=== PATIENT | female | born 1965 | race Caucasian/White ===

== ENCOUNTER 2017-05-18 21:21 | Emergency (ER) | payer MEDICAID, SELFPAY ==
[2017-05-18 21:22] VITALS: BP 164/98; PULSE 97; RESP 22; TEMP 36.6; O2SAT 98; BMI 31.5
[2017-05-18 21:25] VITALS: BP 164/98; PULSE 95; RESP 16; O2SAT 97
[2017-05-18] MEDS: LORazepam 2 MG/ML Syringe 1 MG IV (21:34)
--- NOTE | 2017-05-18 21:34 | EKG12_ITS ---
Test Reason : REPEAT Blood Pressure : / mmHG Vent. Rate : 071 BPM Atrial Rate : 071 BPM P-R Int : 132 ms QRS Dur : 090 ms QT Int : 448 ms P-R-T Axes : 060 044 125 degrees QTc Int : 486 ms Normal sinus rhythm T wave abnormality, consider anterolateral ischemia Prolonged QT Abnormal ECG Confirmed by AXEL HILL, SHAHID ([id number]), editor managing director DOUGLAS BAKER ([id number]) on 05/23/2017 4:11:36 PM Referred By: BETSY Confirmed By:SHAHID REYNA MD
--- NOTE | 2017-05-18 21:34 | CT_ITS ---
STUDY: CT BRAIN WITHOUT CONTRAST REASON FOR EXAM: Female, 52 years old. HX OF CVA, LEFT LEG TREMORS TONIGHT ,ELEVATED BP HX:MS,RA,HTN,ASTHMA,CVA WITH RESIDUAL LT SIDED DEFICITS RADIATION DOSAGE (If Supplied By Facility): CTDIvol = ( 44.99 ) mGy, DLP = ( 745.49 ) mGycm TECHNIQUE: Transaxial CT imaging of the brain was performed without administration of intravenous contrast material. Individualized dose optimization techniques were used for this CT. COMPARISON: None. FINDINGS: Normal soft tissue structures. Normal calvarium. Old right COPER HAND infarct. Normal size ventricles and extra-axial spaces for the patient's age. Normal white matter tracts of the cerebral hemispheres. Normal basal ganglia and thalami. Normal brainstem. Normal cerebellum. There is no intracranial hemorrhage. There are no findings of an acute ischemic infarction. Normal visualized paranasal sinuses. CT/Brain/Head without Contrast IMPRESSION: Old right COPER HAND infarct. Electronically Signed: Shakeel Salcido MD at 22:02 EST , Service support ,
[2017-05-18 21:36] LABS: Bedside Glucose 124 mg/dL (70-110)
--- NOTE | 2017-05-18 21:37 | ED.VISSUMM ---
- ER Visit Summary Date of Service: 05/18/17 Chief Complaint: Left lower extremity tremor History of Present Illness: The patient is a 52 F prior history of CVA with left upper extremity and lower extremity paralysis. Patient states that around 7:00 tonight she started having tremor of her left lower extremity. Is been continuous since that time. She is one other time in the summer and was treated at [facility]. They told her that it was anxiety according to her. She denies any headache. Denies any history of seizure disorder. Physical Examination: Well-appearing middle-age female. Vital signs are stable afebrile. Pulse ox 90% on room air no signs of hypoxia. H EENT exam pupils round reactive light. Extra motions are intact. No facial droop. Normal speech. Neck nontender. Lungs clear to auscultation bilaterally. Heart regular rate and rhythm no murmur. Abdomen soft nontender. Extremities both the right upper right lower extremity she is moving normally. With normal shaker repairer strength and dorsi and plantar flexion. Normal motor strength and sensation. She has paralysis of the left arm and leg. Clinically she has a unifocal seizure her left leg currently occurring. She has a normal DP pulse. Neurologically she is awake and alert. She is moving both right upper right lower extremity. She has paralysis of the left upper and lower extremity. She is having acute unifocal seizure of the left leg. She is answering questions and acting appropriately. 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 No bleed no acute abnormality. CBC shows a white count of 12. H&H 14 and 43. BMP normal. Creatinine 1.1. Troponin normal. EKG initial EKG patient was actively having in her focal seizure her leg and had a lot of artifact on it. Repeat EKG showed a sinus rhythm with inverted T waves in the 3 through V5. The most recent old EKG was 20 years ago and the patient was 32. She is having no cardiac symptoms. And has not been having any chest pain. Emergency Department Course and Treatment: Patient will be worked up including a CT. She will be given 1 mg of Ativan IV to try to stop the seizure activity of her left leg. Treatment Plan: Patient is unifocal seizure completely resolved after the 1 mg of IV Ativan. She wants to be discharged to home and worked up as an outpatient. I spoke to the on-call neurologist and he will see her in follow-up. She will be started on Keppra 500 twice daily. And will need outpatient MRI and EEG according to the neurologist. Patient does not drive. And on repeat exam her left foot has a strong DP pulse. Calf is nonswollen. Anesthesia is resolved. Disposition: Discharge Impression: Acute left lower extremity unifocal seizure Status post stroke with left-sided paralysis from 2014 This note was generated with [employer] dictation software. It may contain incorrect words, spelling, and punctuation that were not noted in review of the chart prior to signing ED Disposition - Plan for ED Patient: Chief Complaint: Neuro S/Sx Referrals: [facility] Doctor,Out of [NON-STAFF] -
--- NOTE | 2017-05-18 21:41 | ED.DCSUM_ITS ---
- ER Visit Summary Date of Service: 05/18/17 Chief Complaint: Left lower extremity tremor History of Present Illness: The patient is a 52 F prior history of CVA with left upper extremity and lower extremity paralysis. Patient states that around 7:00 tonight she started having tremor of her left lower extremity. Is been continuous since that time. She is one other time in the summer and was treated at [facility]. They told her that it was anxiety according to her. She denies any headache. Denies any history of seizure disorder. Physical Examination: Well-appearing middle-age female. Vital signs are stable afebrile. Pulse ox 90% on room air no signs of hypoxia. H EENT exam pupils round reactive light. Extra motions are intact. No facial droop. Normal speech. Neck nontender. Lungs clear to auscultation bilaterally. Heart regular rate and rhythm no murmur. Abdomen soft nontender. Extremities both the right upper right lower extremity she is moving normally. With normal manager engagement strength and dorsi and plantar flexion. Normal motor strength and sensation. She has paralysis of the left arm and leg. Clinically she has a unifocal seizure her left leg currently occurring. She has a normal DP pulse. Neurologically she is awake and alert. She is moving both right upper right lower extremity. She has paralysis of the left upper and lower extremity. She is having acute unifocal seizure of the left leg. She is answering questions and acting appropriately. 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 No bleed no acute abnormality. CBC shows a white count of 12. H&H 14 and 43. BMP normal. Creatinine 1.1. Troponin normal. EKG initial EKG patient was actively having in her focal seizure her leg and had a lot of artifact on it. Repeat EKG showed a sinus rhythm with inverted T waves in the 3 through V5. The most recent old EKG was 20 years ago and the patient was 32. She is having no cardiac symptoms. And has not been having any chest pain. Emergency Department Course and Treatment: Patient will be worked up including a CT. She will be given 1 mg of Ativan IV to try to stop the seizure activity of her left leg. Treatment Plan: Patient is unifocal seizure completely resolved after the 1 mg of IV Ativan. She wants to be discharged to home and worked up as an outpatient. I spoke to the on-call neurologist and he will see her in follow- up. She will be started on Keppra 500 twice daily. And will need outpatient MRI and EEG according to the neurologist. Patient does not drive. And on repeat exam her left foot has a strong DP pulse. Calf is nonswollen. Anesthesia is resolved. Disposition: Discharge Impression: Acute left lower extremity unifocal seizure Status post stroke with left-sided paralysis from 2014 This note was generated with [employer] dictation software. It may contain incorrect words, spelling, and punctuation that were not noted in review of the chart prior to signing ED Disposition - Plan for ED Patient: Chief Complaint: Neuro S/Sx Referrals: [facility] Doctor,Out of [NON-STAFF] -
[2017-05-18 21:50] LABS: Absolute Lymphocyte Count 5.33 X10^3/ul (0.83-4.51); Absolute Neutrophil Count 5.5 X10^3/uL (2.0-7.7); Basophil# 0.03 X10^3/uL; Basophil% 0.2 % (0-1); Differential Indicated SCAN CRITERIA MET; Eosinophil# 0.31 X10^3/uL; Eosinophils% 2.5 % (0-5); Hematocrit 43.9 % (37-47); Hemoglobin 14.5 g/dl (12.0-15.0); Lymphocyte # 5.33 X10^3/ul (4.0); Lymphocyte % 42.9 % (19-41); Mean Corpuscular Hgb 30.1 pg (27.0-32.0); Mean Corpuscular Volume 91.1 fL (81-99); Monocyte% 9.7 % (0-10); Neutrophil # 5.52 X10^3/uL (2.7-7.7); Neutrophil % 44.5 % (47-70); POSITIVE COUNT NO; POSITIVE DIFFERENTIAL YES; POSITIVE MORPHOLOGY NO; Platelet Count 261 K/mm3 (150-450); RBC Distribution Width CV 12.8 % (11.6-14.6); RBC Distribution Width SD 42.2 fl (35.1-43.9); Red Blood Count 4.82 M/mm3 (4.2-5.4); White Blood Count 12.4 K/mm3 (4.4-11.0)
[2017-05-18 22:09] LABS: Anion Gap 11 (5-15); BUN 22 mg/dL (7-18); BUN/Creat Ratio 18.8 RATIO (10-20); Calcium,Total 9.2 mg/dL (8.5-10.1); Chloride 102 mmol/L (98-107); Creatinine, Serum 1.17 mg/dL (0.55-1.02); EST Glomerular Filtration Rate 52 mL/min (>60); Est Glom Filt Rate - Afr Amer 63 mL/min (>60); Estimated Creatinine Clearance 44.49 ml/min; Glucose 119 mg/dL (70-110); Sodium Level 138 mmol/L (136-145)
--- NOTE | 2017-05-18 22:11 | EKG12_ITS ---
Test Reason : CP Blood Pressure : / mmHG Vent. Rate : 096 BPM Atrial Rate : 096 BPM P-R Int : 136 ms QRS Dur : 082 ms QT Int : 372 ms P-R-T Axes : 069 055 171 degrees QTc Int : 469 ms Normal sinus rhythm ST & T wave abnormality, consider inferior ischemia ST & T wave abnormality, consider anterolateral ischemia Abnormal ECG Confirmed by AXEL HILL, SHAHID ([id number]), editor greeting card DOUGLAS BAKER ([id number]) on 05/23/2017 4:11:27 PM Referred By: CYRUS Confirmed By:SHAHID REYNA MD
[2017-05-18 22:20] LABS: Differential Comment SCANNED; Platelet Estimate ADEQUATE (ADEQ); Reactive Lymphocyte 1+
--- NOTE | 2017-05-18 23:05 | ED.DEP ---
ED Disposition - Plan for ED Patient: Disposition: Home or Assisted Living Chief Complaint: Neuro S/Sx Instructions: ED Seizure New Onset Unk Cause Prescriptions: Levetiracetam [Keppra] 500 mg PO BID #60 tab Referrals: Kiesha Slater MD [STAFF PHYSICIAN] - As soon as possible Additional Instructions: Start Keppra 1 pill twice a day to try to prevent the seizures. You have new onset seizure of your left leg because most likely by her prior stroke. You need outpatient follow-up with the neurologist for an MRI, EEG study and further evaluation. Call their office for an appointment as soon as possible
[2017-05-18] MEDS: HYDROcodone Bitartrate/Apap 5/325 Tablet PO (23:09)
[2017-05-18 23:10] VITALS: BP 121/68; PULSE 71; RESP 16; O2SAT 95
[2017-05-18] MEDS: levETIRAcetam 500 MG Tablet PO (23:25)
== END 2017-05-18 23:36 | disposition home or self-care (01) ==
PROVIDERS: Emergency Provider Emergency Medicine; Family Provider Family Medicine; PCP Family Medicine
DX: R56.9 Unspecified convulsions (principal); I69.354 Hemiplegia and hemiparesis following cerebral infarction affecting left non-dominant side; I10 Essential (primary) hypertension; E78.00 Pure hypercholesterolemia, unspecified; G35 Multiple sclerosis; M06.9 Rheumatoid arthritis, unspecified; Z72.0 Tobacco use; Z79.51 Long term (current) use of inhaled steroids; Z79.82 Long term (current) use of aspirin; Z79.02 Long term (current) use of antithrombotics/antiplatelets; Z79.899 Other long term (current) drug therapy
CPT/HCPCS: 70450; 80048; 82962; 84484; 85025; 93005; 96374; 99285; A4216

== ENCOUNTER → 2017-06-06 17:45 | Outpatient (CLI) | payer MEDICAID, SELFPAY ==
[2017-06-06 19:13] LABS: Amphetamine Urine VISTA NEGATIVE (<1000 ng/mL); Barbiturate Urine VISTA NEGATIVE (< 200 ng/mL); Benzodiazepine Urine VISTA NEGATIVE (< 200 ng/mL); Cocaine Urine VISTA NEGATIVE (< 300 ng/mL); Ecstacy Urine VISTA NEGATIVE (< 500 ng/mL); Methadone Urine VISTA NEGATIVE (< 300 ng/mL); PCP Urine VISTA NEGATIVE (< 25 ng/mL); THC Urine VISTA NEGATIVE (< 50 ng/mL); Vista UDS pH Range 5
== END ==
LOC: RAD 17:45 → LAB 17:50
PROVIDERS: Family Provider Family Medicine; PCP Family Medicine; Visit Provider Anesthesiology Pain Medicine
DX: F11.20 Opioid dependence, uncomplicated (principal)
CPT/HCPCS: 80307

== ENCOUNTER → 2017-06-07 10:04 | Outpatient (CLI) | payer MEDICAID, SELFPAY | PROVIDERS: Family Provider Family Medicine; PCP Family Medicine; Visit Provider Anesthesiology Pain Medicine | DX: M54.2 Cervicalgia (principal); M53.3 Sacrococcygeal disorders, not elsewhere classified ==

== ENCOUNTER → 2017-07-04 17:48 | Outpatient (CLI) | payer MEDICAID, SELFPAY ==
[2017-07-04 19:16] LABS: Amphetamine Urine VISTA NEGATIVE (<1000 ng/mL); Barbiturate Urine VISTA NEGATIVE (< 200 ng/mL); Benzodiazepine Urine VISTA NEGATIVE (< 200 ng/mL); Cocaine Urine VISTA NEGATIVE (< 300 ng/mL); Ecstacy Urine VISTA NEGATIVE (< 500 ng/mL); Methadone Urine VISTA NEGATIVE (< 300 ng/mL); PCP Urine VISTA NEGATIVE (< 25 ng/mL); THC Urine VISTA NEGATIVE (< 50 ng/mL); Vista UDS pH Range 5
== END ==
PROVIDERS: Family Provider Family Medicine; PCP Family Medicine; Visit Provider Anesthesiology Pain Medicine
DX: F11.20 Opioid dependence, uncomplicated (principal)
CPT/HCPCS: 80307

== ENCOUNTER → 2017-08-29 12:15 | Outpatient (CLI) | payer MEDICAID, SELFPAY ==
[2017-08-29 13:09] LABS: Amphetamine Urine VISTA NEGATIVE (<1000 ng/mL); Barbiturate Urine VISTA NEGATIVE (< 200 ng/mL); Benzodiazepine Urine VISTA NEGATIVE (< 200 ng/mL); Cocaine Urine VISTA NEGATIVE (< 300 ng/mL); Ecstacy Urine VISTA NEGATIVE (< 500 ng/mL); Methadone Urine VISTA NEGATIVE (< 300 ng/mL); PCP Urine VISTA NEGATIVE (< 25 ng/mL); THC Urine VISTA NEGATIVE (< 50 ng/mL); Vista UDS pH Range 5
== END ==
PROVIDERS: Family Provider Family Medicine; PCP Family Medicine; Visit Provider Anesthesiology Pain Medicine
DX: F11.20 Opioid dependence, uncomplicated (principal)
CPT/HCPCS: 80307

== ENCOUNTER → 2018-02-13 10:17 | Outpatient (CLI) | payer MEDICAID, SELFPAY ==
[2018-02-13 11:28] LABS: Amphetamine Urine VISTA NEGATIVE (<1000 ng/mL); Barbiturate Urine VISTA NEGATIVE (< 200 ng/mL); Benzodiazepine Urine VISTA NEGATIVE (< 200 ng/mL); Cocaine Urine VISTA NEGATIVE (< 300 ng/mL); Ecstacy Urine VISTA NEGATIVE (< 500 ng/mL); Methadone Urine VISTA NEGATIVE (< 300 ng/mL); PCP Urine VISTA NEGATIVE (< 25 ng/mL); THC Urine VISTA NEGATIVE (< 50 ng/mL); Vista UDS pH Range 5
== END ==
PROVIDERS: Referring Provider Anesthesiology Pain Medicine; Visit Provider Anesthesiology Pain Medicine
DX: F11.20 Opioid dependence, uncomplicated (principal)
CPT/HCPCS: 80307

== ENCOUNTER 2018-06-03 19:34 | Emergency (ER) | payer MEDICAID, SELFPAY ==
[2018-06-03 19:36] VITALS: BP 165/107; PULSE 94; RESP 18; TEMP 36.8; O2SAT 99; BMI 32.1
--- NOTE | 2018-06-03 20:23 | ED.VISSUMM ---
- ER Visit Summary Date of Service: 06/03/18 Chief Complaint: Back pain History of Present Illness: The patient is a 53 F with a history of chronic back pain and follows with Dr. Larsen. Patient reports increasing low back pain that wraps to both hips and down her legs for the past 3 days. She denies any new fall or injury. She called Dr. Larsen tonight was advised to come into the ER. She has not had fever or chills. She complains of some mild URI symptoms with left ear pain and sinus pressure. Physical Examination: Vital signs significant for blood pressure 165/107, otherwise unremarkable. Patient sitting in a bedside chair no acute distress. Head neck examination reveals TMs to be clear bilaterally. Heart is regular rate and rhythm. Lungs sounds are clear. Abdomen is soft and nontender. Back examination reveals reproducible tenderness in the bilateral lower lumbar paraspinals. Lower extremity examination reveals good strength in the lower extremities. She has a pinprick sensation to light touch on the right leg above the knee and to the left leg above the ankle. She states this is the same distribution that her pain radiates to. Test Results: [] Emergency Department Course and Treatment: Patient will be given IM morphine and p.o. prednisone. On repeat evaluation she is improved. She is up walking in the hallways. She will be given 4 additional days of prednisone at home. She will continue her hydrocodone as prescribed by her pain management doctor. Treatment Plan: [] Disposition: Discharge Impression: Acute on chronic back pain This note was generated with [employer] dictation software. It may contain incorrect words, spelling, and punctuation that were not noted in review of the chart prior to signing ED Disposition - Plan for ED Patient: Referrals: Care Physician,No Primary [Primary Care Provider] -
[2018-06-03] MEDS: predniSONE 20 MG Tablet 40 MG PO (20:46)
[2018-06-03] MEDS: morphine 8 MG/ML Syringe 6 MG IM (20:46)
--- NOTE | 2018-06-03 21:46 | ED.DEP ---
ED Disposition - Plan for ED Patient: Disposition: Home or Assisted Living Instructions: ED Neck Back Pain General Prescriptions: Prednisone [Deltasone] 40 mg PO DAILY #8 tablet Referrals: Flores Larsen MD [STAFF PHYSICIAN] - 1 Week if not improving
[2018-06-03 21:58] VITALS: PULSE 113; RESP 18; O2SAT 94
== END 2018-06-03 21:59 | disposition home or self-care (01) ==
PROVIDERS: Emergency Provider Emergency Medicine
DX: M54.5 Low back pain (principal); G89.29 Other chronic pain; J45.909 Unspecified asthma, uncomplicated; E78.00 Pure hypercholesterolemia, unspecified; I10 Essential (primary) hypertension; M79.7 Fibromyalgia; M06.9 Rheumatoid arthritis, unspecified; G35 Multiple sclerosis; F41.9 Anxiety disorder, unspecified; F32.9 Major depressive disorder, single episode, unspecified; Z72.0 Tobacco use; Z79.51 Long term (current) use of inhaled steroids; Z79.82 Long term (current) use of aspirin; Z79.02 Long term (current) use of antithrombotics/antiplatelets; Z79.891 Long term (current) use of opiate analgesic; Z79.899 Other long term (current) drug therapy
CPT/HCPCS: 96372; 99283

== ENCOUNTER → 2018-07-31 | Outpatient (CLI) | payer MEDICAID, SELFPAY ==
[2018-07-31 10:43] LABS: Amphetamine Urine VISTA NEGATIVE (<1000 ng/mL); Barbiturate Urine VISTA NEGATIVE (< 200 ng/mL); Benzodiazepine Urine VISTA NEGATIVE (< 200 ng/mL); Cocaine Urine VISTA NEGATIVE (< 300 ng/mL); Ecstacy Urine VISTA NEGATIVE (< 500 ng/mL); Methadone Urine VISTA NEGATIVE (< 300 ng/mL); PCP Urine VISTA NEGATIVE (< 25 ng/mL); THC Urine VISTA NEGATIVE (< 50 ng/mL); Vista UDS pH Range 5
== END | disposition home or self-care (01) ==
LOC: LAB 09:25
PROVIDERS: Family Provider Nurse Practitioner Family; PCP Nurse Practitioner Family; Referring Provider Anesthesiology Pain Medicine; Visit Provider Anesthesiology Pain Medicine
DX: F11.20 Opioid dependence, uncomplicated (principal)
CPT/HCPCS: 80307

== ENCOUNTER 2018-09-03 19:52 | Emergency (ER) | payer MEDICAID, SELFPAY ==
[2018-09-03 19:52] VITALS: BP 153/81; PULSE 69; RESP 16; TEMP 37; O2SAT 98; BMI 30.9
--- NOTE | 2018-09-03 20:55 | ED.VIS.GEN ---
History of Present Illness Chief Complaint: Back Informant: Patient Onset: Days - 2 Context: Gradual Onset Timing: Continuous Quality: ache, grabbing Location: across low back Current Severity: Severe Maximum Severity: Severe Worsened by: walking, moving Relieved by: remaining still Associated Symptoms: chronic tingling in toes bilat from neuropathy. Narrative: Patient has chronic back pain, she has had MRI showing deterioration of her lower spine. She states this is her chronic pain, just worse. Pain radiates into her thighs bilaterally, that is not new. She denies any bowel or bladder dysfunction or saddle anesthesia. She has been able to walk. She denies any injury or obvious reason for exacerbation of her pain. She is in pain management and takes long-acting narcotics, she has been taking that pain as scheduled and they have not helped today and she is in a lot of pain and asking for something. She denies any abdominal pain or loss of consciousness. - Past Medical History (1) Degenerative disc disease, lumbar Status: Chronic (2) Multiple sclerosis Status: Chronic (3) Rheumatoid arthritis Status: Chronic Past Medical History - Allergies and Home Meds Allergies/Adverse Reactions: Allergies Sulfa (Sulfonamide Antibiotics) Allergy (Verified 09/03/18 19:53) Guera Primary Care Physician: Jing Reid NP-C [Primary Care Provider] - Lives: Spouse/ Significant Other Smoking Status: Current every day smoker Review of Systems General: Denies: Chills, Fever Gastrointestinal: Denies: Abdominal pain, Nausea, Vomiting Musculoskeletal: Reports: Arthralgias, Back pain, Extremity Pain Skin: Denies: Rash, Abscess, Wounds Neurological: Reports: Numbness. Denies: Headache, Weakness Physical Exam Vital Signs/Narrative: Vital Signs Temp Pulse Resp BP Pulse Ox 09/03/18 19:52 98.6 F 69 16 153/81 H 98 Inital Vital Signs reviewed: Yes General: Well nourished, Well developed, No Acute Distress Head: Normocephalic, Atraumatic Eyes: Perrl, EOMI Neck: Supple, Nontender Abdomen: Soft, Nontender, Nondistended, Normal bowel sounds. Negative for: Pulsatile mass Back: Normal Inspection, - - bilat distal lumbosacral, in SI joint areas. nontender at sciatic notches. negative bilat straight leg raises.. Negative for: CVA tenderness, Spinal tenderness Extremities: Nontender, No edema Skin: Normal color, No rash, No Trauma Neurological: Alert, Oriented x3, Cranial nerves II-XII grossly intact, Normal Strength, Normal Sensation, Normal Gait - with her cane and her Psychological: Normal affect, Normal Mood Diagnostic/Tx/Re-eval - Medical Decision Making Patient has no focal acute neurologic symptoms, and I have no concern for cauda equina syndrome. I do not think she needs any imaging tonight. She is walking well and does not appear to be in significant pain prior to giving her any medications. She is given an injection of morphine and she understands that she cannot get a prescription since she is in pain management, advised to follow-up after the weekend. ED Disposition - Plan for ED Patient: Disposition: Home or Assisted Living Diagnosis: Acute exacerbation of chronic low back pain Instructions: ED Low Back Pain Injury Referrals: Jing Reid, NICOLA-C [Primary Care Provider] - Flores Larsen MD [STAFF PHYSICIAN] - 1-2 Days if not improving
[2018-09-03] MEDS: morphine 8 MG/ML Syringe IM (21:29)
[2018-09-03 21:55] VITALS: BP 147/64; PULSE 82; RESP 18; O2SAT 94
== END 2018-09-03 21:57 | disposition home or self-care (01) ==
PROVIDERS: Emergency Provider Emergency Medicine; Family Provider Nurse Practitioner Family; PCP Nurse Practitioner Family
DX: G89.29 Other chronic pain (principal); M54.5 Low back pain; M06.9 Rheumatoid arthritis, unspecified; G35 Multiple sclerosis; F17.200 Nicotine dependence, unspecified, uncomplicated
CPT/HCPCS: 96372; 99282

== ENCOUNTER 2018-09-17 16:04 | Emergency (ER) | payer MEDICAID, SELFPAY ==
[2018-09-17 16:05] VITALS: BP 163/72; PULSE 66; RESP 18; TEMP 36.4; O2SAT 100; BMI 31.7
[2018-09-17 16:21] LABS: Bedside Glucose 105 mg/dL (70-110)
--- NOTE | 2018-09-17 16:42 | EKG12_ITS ---
Test Reason : NEURO S/SX Blood Pressure : / mmHG Vent. Rate : 064 BPM Atrial Rate : 064 BPM P-R Int : 128 ms QRS Dur : 078 ms QT Int : 406 ms P-R-T Axes : 051 024 068 degrees QTc Int : 418 ms Normal sinus rhythm Normal ECG Confirmed by AXEL HILL, SHAHID ([id number]), development editor DOUGLAS BAKER ([id number]) on 09/18/2018 11:54:03 AM Referred By: ZAKIYA/THEE Confirmed By:SHAHID REYNA MD
--- NOTE | 2018-09-17 16:42 | CT_ITS ---
STUDY: CT BRAIN WITHOUT CONTRAST REASON FOR EXAM: Female, 53 years old. Difficulty walking, history of MS RADIATION DOSAGE (If Supplied By Facility): CTDIvol = ( 44.99 ) mGy, DLP = ( 711.75 ) mGycm TECHNIQUE: Transaxial CT imaging of the brain was performed without administration of intravenous contrast material. Individualized dose optimization techniques were used for this CT. COMPARISON: 05/18/2017 FINDINGS: Normal soft tissue structures. Normal calvarium. Large encephalomalacia and gliosis of the right parietal occipital lobe with ex vacuo dilation of the right lateral ventricle stable since the prior study. Ventricular system is otherwise normal. Normal basal ganglia and thalami. Normal brainstem. Normal cerebellum. There is no intracranial hemorrhage. There are no findings of an acute ischemic infarction. Normal visualized paranasal sinuses. CT/Brain/Head without Contrast IMPRESSION: 1. No acute intracranial hemorrhage. Table exam. 2. Old right parieto-occipital infarction. Electronically Signed: Froy Lombardi MD at 17:54 EDT , Service support ,
[2018-09-17 16:55] LABS: Absolute Lymphocyte Count 2.66 X10^3/ul (0.83-4.51); Basophil# 0.04 X10^3/uL; Basophil% 0.3 % (0-1); Eosinophil# 0.23 X10^3/uL; Hematocrit 42.9 % (37-47); Hemoglobin 14.8 g/dl (12.0-15.0); Lymphocyte # 2.66 X10^3/ul (4.0); Lymphocyte % 22.7 % (19-41); Mean Corp Hgb Conc 34.5 g/gl (32-36); Mean Corpuscular Hgb 31.4 pg (27.0-32.0); Mean Corpuscular Volume 90.9 fL (81-99); Mean Platelet Vol. 10.1 fl (6.2-12.0); Monocyte# 0.76 X10^3/uL; Monocyte% 6.5 % (0-10); Neutrophil % 68.2 % (47-70); Platelet Count 280 K/mm3 (150-450); RBC Distribution Width CV 13.2 % (11.6-14.6); RBC Distribution Width SD 43.6 fl (35.1-43.9); Red Blood Count 4.72 M/mm3 (4.2-5.4); White Blood Count 11.7 K/mm3 (4.4-11.0)
[2018-09-17 17:00] LABS: POSITIVE COUNT NO; POSITIVE DIFFERENTIAL NO; POSITIVE MORPHOLOGY NO
[2018-09-17 17:03] LABS: Anion Gap 9 (5-15); BUN 36 mg/dL (7-18); BUN/Creat Ratio 27.3 RATIO (10-20); Calcium,Total 8.6 mg/dL (8.5-10.1); Chloride 107 mmol/L (98-107); Creatinine, Serum 1.32 mg/dL (0.55-1.02); EST Glomerular Filtration Rate 45 mL/min (>60); Est Glom Filt Rate - Afr Amer 54 mL/min (>60); Estimated Creatinine Clearance 38.98 ml/min; Glucose 97 mg/dL (74-106); Potassium 4.4 mmol/L (3.5-5.1); Sodium Level 138 mmol/L (136-145)
[2018-09-17] MEDS: 0.9% Normal Saline 1,000 ML 999 ML IV (17:08)
[2018-09-17] MEDS: DiphenhydrAMINE 50 MG/ML Syringe 25 MG IV (17:08)
[2018-09-17] MEDS: proCHLORPERazine 10 MG/2 ML Vial IV (17:08)
--- NOTE | 2018-09-17 17:15 | ED.DCSUM_ITS ---
- ER Visit Summary Date of Service: 09/17/18 Chief Complaint: Left-sided weakness History of Present Illness: The patient is a 53 F who presents with increasing weakness of her left side that began yesterday. Patient states she developed a headache yesterday. Patient states her daughter noticed that she was dragging her left foot today. Patient has a history of a CVA with left-sided weakness. Patient states her headache is over the frontal and left side of her face. Patient describes pain as throbbing. Patient states her pain is worse with bright lights. Patient denies any nausea or vomiting. Patient denies any radiation of the pain. Patient denies any visual changes. Patient denies any chest pain or shortness of breath. Physical Examination: Vital signs are stable. Patient is afebrile. Patient is in no acute distress. Cranial nerves II through XII are intact. Strength is 5/5 in the right upper and lower extremities. Strength is 5/5 in the left lower extremity. Strength is 5/5 in the left bicep and tricep muscles. Patient has difficulty moving her fingers but is able to extend her thumb. Patient states these are all chronic from her previous stroke. There are no sensory deficits noted. Heart was regular rate and rhythm. Lungs are clear and equal bilaterally. Abdomen is soft and nontender. Test Results: CT scan of the brain was obtained. There is no acute intracranial abnormality. There is no change compared to previous CT scan. CBC showed a slight leukocytosis of 11.7. BUN was 36 and creatinine was 1.32. These are consistent with prior results. Emergency Department Course and Treatment: Patient felt better on reevaluation. Patient had no new focal neuro deficits. Patient left prior to discharge instructions. Disposition: Discharge home Impression: 1. Left-sided weakness 2. History of stroke This note was generated with [employer] dictation software. It may contain incorrect words, spelling, and punctuation that were not noted in review of the chart prior to signing ED Disposition - Plan for ED Patient: Disposition: Home or Assisted Living Diagnosis: Left-sided weakness Referrals: Jing Reid, FIELD MECHANIC-C [Primary Care Provider] - 3-5 Days
[2018-09-17 18:07] VITALS: PULSE 74; RESP 13; O2SAT 98
== END 2018-09-17 19:59 | disposition home or self-care (01) ==
PROVIDERS: Emergency Provider Emergency Medicine; Family Provider Nurse Practitioner Family; PCP Nurse Practitioner Family
DX: I69.354 Hemiplegia and hemiparesis following cerebral infarction affecting left non-dominant side (principal); I63.9 Cerebral infarction, unspecified; J45.909 Unspecified asthma, uncomplicated; I10 Essential (primary) hypertension; G35 Multiple sclerosis; M79.7 Fibromyalgia; M06.9 Rheumatoid arthritis, unspecified; Z72.0 Tobacco use; Z79.51 Long term (current) use of inhaled steroids; Z79.02 Long term (current) use of antithrombotics/antiplatelets; Z79.899 Other long term (current) drug therapy
CPT/HCPCS: 70450; 80048; 82962; 85025; 93005; 96361; 96374; 96375; 99285; J7030; A4216

== ENCOUNTER 2018-11-19 18:54 | Emergency (ER) | payer MEDICAID, SELFPAY ==
[2018-11-19 18:55] VITALS: BP 139/66; PULSE 66; RESP 18; TEMP 35.9; O2SAT 97; BMI 32.1
--- NOTE | 2018-11-19 19:25 | ED.DCSUM_ITS ---
History of Present Illness Chief Complaint: Fall Detail of Chief Complaint: Intractable back pain Informant: Patient Onset: Days Context: Gradual Onset Current Severity: Moderate Maximum Severity: Moderate Narrative: Patient is a history of chronic back pain. She had prior stroke and has continued left-sided weakness. 4 days ago she caught her left toe and fell land ing right on the right posterior buttock. She had pain to that area since that time but is now shooting down the right leg to her foot. She was seen at [facility] urgent care twice since the time of injury. She is currently on steroids. She is already on extended release oxycodone as well as gabapentin and muscle relaxer. Nursing staff received a phone call from Dr. Larsen's nurse stating the patient will be sent in for pain control. Patient is scheduled to see Dr. Larsen's partner the end of this week. Past Medical History - Allergies and Home Meds Allergies/Adverse Reactions: Allergies bee venom protein (honey bee) Allergy (Verified 11/19/18 18:55) Anaphylaxis Sulfa (Sulfonamide Antibiotics) Allergy (Verified 11/19/18 18:54) Hives Primary Care Physician: Jing Reid NP-C [Primary Care Provider] - Doctors: Dr. Larsen Prior records reviewed: Yes Past Medical History: - - Reviewed Surgical History: - - no prior back surgery Smoking Status: Current every day smoker Review of Systems General: Denies: Chills, Fever Eyes: Denies: Visual changes - bilaterally ENT: Denies: Bilateral ear pain Cardiovascular: Denies: Chest pain, Palpitations Respiratory: Denies: Dyspnea, Cough Genitourinary: Denies: Dysuria Musculoskeletal: Reports: Back pain Neurological: Reports: Weakness Endocrine: Denies: Polyuria, Polydipsia Hematologic: Denies: Easy bruising Allergy: Denies: Uticaria Physical Exam Vital Signs/Narrative: Vital Signs Temp Pulse Resp BP Pulse Ox 11/19/18 18:55 96.7 F L 66 18 139/66 H 97 Inital Vital Signs reviewed: Yes General: Well nourished, Well developed Eyes: Perrl, EOMI ENT: Moist mucous membranes Cardiovascular: Regular rate, Regular rhythm Respiratory: No distress, CTA bilaterally Abdomen: Soft, Nontender Back: - - Reproducible tenderness over the right sciatic notch. Extremities: - - Chronic left upper extremity contracture and chronic left-sided weakness secondary to stroke. Skin: Normal color Neurological: Alert, - - Good strength and sensation on the right. Chronic left-sided weakness noted. Psychological: Normal affect Diagnostic/Tx/Re-eval - Medical Decision Making Patient was given 8 mg of IM morphine along with a dose of p.o. prednisone. I did review clinisync and her two recent visits to the [facility] urgent care. They documented that they gave her prednisone but did not state how many milligrams. On repeat examination patient is resting comfortably and feels significantly improved. She states that her pain is not been controlled on the long acting oxycodone that she is currently on. She had done better in the past with either [place] or Percocet. She is already on gabapentin, steroids, and muscle relaxer. I spoke with oCng Diaz, nurse for Dr. Larsen. We will write the patient a short course of p.o. Percocet which we have instructed her to take in place of her long-acting oxycodone. She voices understanding and agreement. She is to follow-up next Tuesday as planned. ED Disposition - Plan for ED Patient: Disposition: Home or Assisted Living Diagnosis: Sciatica Instructions: BACK PAIN w/ SCIATICA Referrals: Marj Irvin MD [STAFF PHYSICIAN] - Keep Elsa appointment Additional Instructions: *Prescription for 15 tabs Percocet hand written and sent to hospital pharmacy.
[2018-11-19] MEDS: morphine 8 MG/ML Syringe IM (19:28)
[2018-11-19] MEDS: predniSONE 20 MG Tablet 40 MG PO (19:29)
[2018-11-19 21:17] VITALS: RESP 18
== END 2018-11-19 21:17 | disposition home or self-care (01) ==
PROVIDERS: Emergency Provider Emergency Medicine; Family Provider Nurse Practitioner Family; PCP Nurse Practitioner Family
DX: M54.31 Sciatica, right side (principal); I63.9 Cerebral infarction, unspecified; I69.344 Monoplegia of lower limb following cerebral infarction affecting left non-dominant side; I69.334 Monoplegia of upper limb following cerebral infarction affecting left non-dominant side; F17.200 Nicotine dependence, unspecified, uncomplicated; Z79.02 Long term (current) use of antithrombotics/antiplatelets
CPT/HCPCS: 96372; 99282

== ENCOUNTER 2018-12-20 12:46 | Emergency (ER) | payer MEDICAID, SELFPAY ==
[2018-12-20 12:47] VITALS: BP 106/63; PULSE 82; RESP 18; TEMP 36.6; O2SAT 98; BMI 34.7
--- NOTE | 2018-12-20 13:29 | RAD_ITS ---
STUDY: X-RAY - LUMBAR SPINE REASON FOR EXAM: Female, 53 years old. Back pain following a fall. Bruising. TECHNIQUE: 3 view(s) of the lumbar spine were obtained. COMPARISON: None FINDINGS: Normal lumbar lordosis. There is no substantial scoliosis. Grade 1 anterolisthesis of L4 on L5. Normal vertebral bodies and endplates. There is multi-level degenerative disc disease with multi-level disc space narrowing. There is atherosclerotic calcification of the abdominal aorta without a demonstrated aneurysm. RAD/Lumbar Spine 2 or 3 Views IMPRESSION: Degenerative changes of the spine, as detailed above. Regular anterior listhesis of L4 on L5. Electronically Signed: Abhay Mojica, at 15:10 EDT , Service support ,
--- NOTE | 2018-12-20 13:29 | CT_ITS ---
STUDY: CT BRAIN WITHOUT CONTRAST REASON FOR EXAM: Female, 53 years old. Head injury due to a fall. No loss of consciousness. Old cerebrovascular accident. RADIATION DOSAGE (If Supplied By Facility): CTDIvol = ( 44.99 ) mGy, DLP = ( 745.49 ) mGycm TECHNIQUE: Transaxial CT imaging of the brain was performed without administration of intravenous contrast material. Individualized dose optimization techniques were used for this CT. COMPARISON: Comparison is made with prior examination dated September 17, 2018. FINDINGS: Normal soft tissue structures. Normal calvarium. Once again, there is a large area of encephalomalacia involving the right parietal temporal occipital lobes in keeping with prior infarction of the right posterior cerebral artery territory. Normal basal ganglia and thalami. Normal brainstem. Normal cerebellum. There is no intracranial hemorrhage. There are no findings of an acute ischemic infarction. Normal visualized paranasal sinuses. CT/Brain/Head without Contrast IMPRESSION: Stable encephalomalacia in the right temporal parietal occipital lobes. Electronically Signed: Abhay Mojica, at 14:45 EDT , Service support ,
--- NOTE | 2018-12-20 13:29 | RAD_ITS ---
STUDY: X-RAY - LEFT HAND REASON FOR EXAM: Female, 53 years old. Pain following a fall. TECHNIQUE: 3 view(s) of the hand. COMPARISON: None. FINDINGS: There is joint space narrowing of the radiocarpal articulation consistent with degenerative arthrosis. Normal distal radioulnar joint. Normal visualized carpal bones. Normal carpal articulations Normal carpometacarpal articulation of the thumb. Normal second through fifth carpometacarpal joints. Normal metacarpi. Normal metacarpophalangeal joint of the thumb. Normal interphalangeal joint of the thumb. Normal proximal and distal phalanges of the thumb. Normal metacarpophalangeal joints of the second through fifth fingers. Normal proximal and distal interphalangeal joints of the second through fifth fingers. Comminuted fracture of the distal portion of the fifth metacarpal with dorsal angulation. Overlying soft tissue swelling. RAD/Hand Min 3 Views IMPRESSION: Comminuted nondisplaced fracture of the distal aspect of the fifth metacarpal with dorsal angulation and diffuse soft tissue swelling. Electronically Signed: Abhay Mojica, at 15:21 EDT , Service support ,
--- NOTE | 2018-12-20 13:29 | RAD_ITS ---
STUDY: X-RAY - PELVIS AND BILATERAL HIPS REASON FOR EXAM: Female, 53 years old. Pain following a fall. TECHNIQUE: AP view of the pelvis.? 2 views of the right hip, and 2 views of the left hip were obtained. COMPARISON: None. FINDINGS: Moderate amount of fecal material is seen in the right hemicolon. Bilateral calcified injection granulomas. Normal bilateral iliac wings, sacroiliac joints and visualized sacrum. Normal bilateral superior and inferior pubic rami. Normal pubic symphysis. Normal bilateral ischial tuberosities. Normal visualized right femoral head. Normal right acetabulum. Normal right hip joint. Normal visualized left femoral head. Normal left acetabulum. Normal left hip joint. RAD/Hips B/L min 2 views w/ Pelvis IMPRESSION: Normal x-ray examination of the pelvis and bilateral hips. Electronically Signed: Abhay Mojica, at 15:11 EDT , Service support ,
--- NOTE | 2018-12-20 13:29 | EKG12_ITS ---
Test Reason : FALL Blood Pressure : / mmHG Vent. Rate : 067 BPM Atrial Rate : 067 BPM P-R Int : 122 ms QRS Dur : 074 ms QT Int : 398 ms P-R-T Axes : 050 008 042 degrees QTc Int : 420 ms Normal sinus rhythm Normal ECG Confirmed by DESIREE CHARLES ([id number]), book editor SYLVIA KHAN ([id number]) on 12/25/2018 2:44:11 PM Referred By: JORDYN Confirmed By:DESIREE CHARLES
--- NOTE | 2018-12-20 13:29 | RAD_ITS ---
STUDY: X-RAY - LEFT SHOULDER REASON FOR EXAM: Female, 53 years old. Pain following a fall. TECHNIQUE: 2 view(s) of the shoulder. COMPARISON: None. FINDINGS: Normal glenohumeral articulation. Normal acromioclavicular joint. Normal acromion. Normal humeral head and visualized proximal humerus. The soft tissue structures are unremarkable. Normal visualized pulmonary apex. RAD/Shoulder min 2 Views IMPRESSION: Normal x-ray examination of the shoulder. Electronically Signed: Abhay Mojica, at 15:21 EDT , Service support ,
--- NOTE | 2018-12-20 13:29 | RAD_ITS ---
STUDY: X-RAY CHEST REASON FOR EXAM: Female, 53 years old. Pain and bruising following a fall. TECHNIQUE: Single AP portable view of the chest. COMPARISON: None. FINDINGS: The lungs are clear and expanded. Scattered calcified granulomas. There is no demonstrated pleural abnormality. Normal size heart. Normal mediastinum and helen. Normal visualized pulmonary arteries. Normal visualized aortic arch and descending thoracic aorta. Normal visualized thoracic spine. Normal visualized ribs, clavicles, and shoulders. There is no demonstrated abnormality of the visualized soft tissue structures of the upper abdomen. RAD/Chest 1 View (Portable) IMPRESSION: Normal x-ray examination of the chest. Electronically Signed: Abhay Mojica, at 15:11 EDT , Service support ,
--- NOTE | 2018-12-20 13:31 | RAD_ITS ---
STUDY: X-RAY - LEFT HUMERUS REASON FOR EXAM: Female, 53 years old. Pain and bruising following a fall TECHNIQUE: 2 view(s) of the humerus. COMPARISON: None. FINDINGS: Nondisplaced transverse fracture of the distal humeral shaft. Soft tissue swelling. RAD/Humerus min 2 Views IMPRESSION: Soft tissue swelling. Nondisplaced transverse fracture of the distal humeral shaft. Electronically Signed: Abhay Mojica, at 15:12 EDT , Service support ,
--- NOTE | 2018-12-20 13:31 | CT_ITS ---
STUDY: CT CERVICAL SPINE WITHOUT CONTRAST REASON FOR EXAM: Female, 53 years old. Head injury due to a fall. No loss of consciousness. RADIATION DOSAGE (If Supplied By Facility): CTDIvol = ( 23.20 ) mGy, DLP = ( 456.28 ) mGycm TECHNIQUE: High resolution transaxial imaging was performed without contrast material. Sagittal and coronal images were reconstructed. Individualized dose optimization techniques were used for this CT. COMPARISON: None FINDINGS: Normal craniovertebral junction. Normal anterior atlantoaxial articulation. Normal odontoid process. Normal cervical lordosis. Normal vertebral bodies and posterior osseous elements. C2-3: Normal endplates. Normal disc height and morphology. Normal central canal and intervertebral neuroforamina. C3-4: Normal endplates. Normal disc height and morphology. Normal central canal and intervertebral neuroforamina. C4-5: Normal endplates. Normal disc height and morphology. Normal central canal and intervertebral neuroforamina. C5-6: Normal endplates. Normal disc height and morphology. Normal central canal and intervertebral neuroforamina. C6-7: Normal endplates. Normal disc height and morphology. Normal central canal and intervertebral neuroforamina. C7-T1: Normal endplates. Normal disc height and morphology. Normal central canal and intervertebral neuroforamina. Normal visualized soft tissue structures. CT/Spine Cervical without Contras IMPRESSION: Normal unenhanced CT examination of the cervical spine. Electronically Signed: Abhay Mojica, at 14:48 EDT , Service support ,
[2018-12-20] MEDS: Acetaminophen 500 MG Tablet 1000 MG PO (13:54)
[2018-12-20 13:58] LABS: Absolute Lymphocyte Count 2.52 X10^3/uL (0.83-4.51); Absolute Neutrophil Count 7.3 X10^3/uL (2.0-7.7); Basophil# 0.02 X10^3/uL; Basophil% 0.2 % (0-1); Eosinophil# 0.11 X10^3/uL; Hematocrit 38.3 % (37-47); Hemoglobin 12.4 g/dL (12.0-15.0); Lymphocyte # 2.52 X10^3/ul (4.0); Lymphocyte % 23.1 % (19-41); Mean Corp Hgb Conc 32.4 g/dL (32-36); Mean Corpuscular Hgb 31.4 pg (27.0-32.0); Mean Platelet Vol. 9.5 fl (6.2-12.0); Monocyte# 0.85 X10^3/uL; Monocyte% 7.8 % (0-10); NRBC Flagged by Analyzer 0 % (0-5); Neutrophil # 7.28 X10^3/uL (2.7-7.7); Neutrophil % 66.6 % (47-70); Platelet Count 242 K/mm3 (150-450); RBC Distribution Width CV 13.4 % (11.6-14.6); Red Blood Count 3.95 M/mm3 (4.2-5.4); White Blood Count 10.9 K/mm3 (4.4-11.0)
[2018-12-20 14:15] LABS: Anion Gap 5 (5-15); BUN 34 mg/dL (7-18); BUN/Creat Ratio 20.6 RATIO (10-20); Calcium,Total 8.9 mg/dL (8.5-10.1); Chloride 106 mmol/L (98-107); Creatinine, Serum 1.65 mg/dL (0.55-1.02); EST Glomerular Filtration Rate 35 mL/min (>60); Est Glom Filt Rate - Afr Amer 42 mL/min (>60); Estimated Creatinine Clearance 31.19 ml/min; Glucose 107 mg/dL (74-106); Potassium 5.2 mmol/L (3.5-5.1); Sodium Level 136 mmol/L (136-145)
[2018-12-20] MEDS: Ondansetron 4 MG/2 ML Vial IV (15:20)
[2018-12-20] MEDS: Morphine 4 MG/ML Syringe IV (15:20)
--- NOTE | 2018-12-20 15:37 | NURSING ---
DR MARISA HERNANDEZ
[2018-12-20 15:58] VITALS: BP 127/80; PULSE 67; RESP 16; O2SAT 97
--- NOTE | 2018-12-20 16:00 | ED.DCSUM_ITS ---
History of Present Illness Chief Complaint: Fall Narrative: Patient presenting for evaluation secondary to a fall with generalized pain. Patient states that she was up today getting breakfast ready. She reports that she was walking around the kitchen diary to get some cereal, and she suddenly became lightheaded, and this caused her to fall. Patient does not believe that she completely passed out, but she became so weak that she fell. She hit her left shoulder left hand left hip and the left side of her head. No full loss of consciousness. Patient denies any visual changes numbness or weakness. No chest pain shortness of breath or palpitations associated with this. Patient has chronic left-sided weakness secondary to a stroke. Patient reports that she had a distant history of a fracture of the left humerus. Tetanus status is unknown. Pain is moderate to severe worse with movement and palpation. Past Medical History - Allergies and Home Meds Allergies/Adverse Reactions: Allergies bee venom protein (honey bee) Allergy (Verified 12/20/18 12:49) Anaphylaxis mushroom Allergy (Verified 12/20/18 12:49) Angioedema Sulfa (Sulfonamide Antibiotics) Allergy (Verified 12/20/18 12:49) Hives Primary Care Physician: Jing Reid NP-C [Primary Care Provider] - Past Medical History: - - Prior history of stroke Surgical History: - - no prior back surgery Smoking Status: Current every day smoker Review of Systems All systems negative except as indicated Eyes: Denies: Visual changes - bilaterally Cardiovascular: Denies: Chest pain, Palpitations Respiratory: Denies: Dyspnea Gastrointestinal: Denies: Nausea, Vomiting Musculoskeletal: Reports: Extremity Pain Neurological: Reports: Weakness. Denies: Headache, Parasthesia Physical Exam Vital Signs/Narrative: Vital Signs Temp Pulse Resp BP Pulse Ox 12/20/18 12:47 97.9 F 82 18 106/63 98 General: - - Airways patent, breath sounds equal bilateral, central peripheral pulses 2+ and symmetric. GCS 15 out of 15. Well-nourished well-developed female who appears older than stated age. Head: Normocephalic, Atraumatic Eyes: Perrl, EOMI ENT: Moist mucous membranes, No rhinorrhea Neck: Supple, - - Patient complains of diffuse pain of the cervical spine without any evidence of step-offs Cardiovascular: Regular rate, Regular rhythm, No murmurs, - - 2+ radial pulses bilaterally symmetric Respiratory: Wheezing - Bilaterally without any respiratory distress noted Abdomen: Soft, Nontender, Nondistended, Normal bowel sounds Back: - - Lumbar spinal tenderness to palpation Extremities: - - Patient has significant bruising of the bilateral upper extremities both new and old. Patient's right upper extremity seems atraumatic with normal range of motion no pain, same with the right lower extremity. Left upper extremity the patient states that she has pain in the hand as well as the shoulder. Limited range of motion secondary to pain, and chronic contracture from the patient's stroke. There is a skin tear noted over the lateral portion of the patient's hand. Skin: Normal color Neurological: Alert, Oriented x3, - - Chronic left weakness Psychological: Normal affect Diagnostic/Tx/Re-eval - EKG Follow-up EKG Interpretation: - - Sinus rhythm at [address] segments normal T waves no evidence of acute ischemia or arrhythmia Prior: Unchanged - Medical Decision Making Patient presented secondary to a fall. There was lightheadedness that preceded this without any real prodromes of syncope work-up was obtained. EKG unremarkable. CBC and chemistry are remarkable for mildly high potassium at 5.2, mild elevation of creatinine from 1.3-1.6. Opponent found to be negative. CT brain and cervical spine unremarkable. Multiple radiographs were obtained. Chest x-ray by my personal review shows chronic changes nothing acute. Left shoulder shows evidence of a distal humerus fracture, this is confirmed with a humerus x-ray, this is nondisplaced and in the distal shaft. Left hand x-ray shows a displaced fracture of the patient's fifth metacarpal. Hip and pelvis x- rays bilaterally are found to be negative. Given the patient's underlying history of stroke and likely vascular disease and no prodrome for her syncope I did recommend admission. Patient is of sound mind and has decision-making capacity and is not intoxicated. She states that she wishes to sign out AGAINST MEDICAL ADVICE. I did inform her that she needs to follow-up with her primary care physician immediately for this. Far as the patient's fractures, there is a small skin tear over the lateral portion of her hand which does not seem to communicate with any sort of deep space but is in the general vicinity of her comminuted fracture so it will be treated as an open fracture with antibiotic treatment. I discussed patient's case with covering orthopedics who recommended antibiotics and splinting of the hand, and a coaptation splint sling and swath of the arm. Splinting was difficult due to the patient's underlying contractures, but ultimately shows good capillary refill following splinting of the upper arm and lower arm. Ulnar gutter was placed on the left hand using cotton padding and an Ángel wrap as well as Ortho-Glass. Coaptation splint was placed on the arm using the same materials. Patient was discharged with Keflex. ED Disposition - Plan for ED Patient: Disposition: Home or Assisted Living Diagnosis: Syncope, Left humeral fracture, Open boxer's fracture Instructions: FRACTURE, Upper Extremity, FRACTURE, Boxer's, FRACTURE, Hand (Open) Prescriptions: Cephalexin [Keflex] 500 mg PO Q6 #40 cap Prescription Printed Referrals: Jing Reid, NICOLA-C [Primary Care Provider] - As soon as possible Lizzeth Becker DO [STAFF PHYSICIAN] - As soon as possible
[2018-12-20] MEDS: Diphth,Pertuss(Acell),Tet Vac 0.5 ML Vial IM (16:21)
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
== END 2018-12-20 16:31 | disposition home or self-care (01) ==
PROVIDERS: Emergency Provider Emergency Medicine; Family Provider Nurse Practitioner Family; PCP Nurse Practitioner Family
DX: R55 Syncope and collapse (principal); S42.325A Nondisplaced transverse fracture of shaft of humerus, left arm, initial encounter for closed fracture; S62.397B Other fracture of fifth metacarpal bone, left hand, initial encounter for open fracture; I63.9 Cerebral infarction, unspecified; I69.334 Monoplegia of upper limb following cerebral infarction affecting left non-dominant side; F17.200 Nicotine dependence, unspecified, uncomplicated; W18.30XA Fall on same level, unspecified, initial encounter; Y93.01 Activity, walking, marching and hiking; Y92.000 Kitchen of unspecified non-institutional (private) residence as the place of occurrence of the external cause; Y99.8 Other external cause status
CPT/HCPCS: 29125; 70450; 71045; 72100; 72125; 73030; 73060; 73130; 73521; 80048; 84484; 85025; 90471; 90715; 93005; 96374; 96375; 99285; A4216; J2405

== ENCOUNTER → 2019-01-01 | Outpatient (CLI) | payer MEDICAID, SELFPAY ==
[2019-01-01 14:44] VITALS: BMI 34.7
--- NOTE | 2019-01-01 15:02 | RAD_ITS ---
STUDY: X-RAY - LEFT HUMERUS REASON FOR EXAM: Female, 53 years old. Follow-up fracture TECHNIQUE: 3 view(s) of the humerus. COMPARISON: 12/20/2018 FINDINGS: Evaluation is limited by suboptimal positioning. There is an old healed fracture of the distal humerus with residual angulation. There is a stable healing fracture of the distal humerus noted. There is no new fracture. RAD/Humerus min 2 Views IMPRESSION: Stable exam. Electronically Signed: Jw Lopez, at 21:43 EDT Tel , Service support ,
--- NOTE | 2019-01-01 15:02 | RAD_ITS ---
STUDY: X-RAY - LEFT WRIST REASON FOR EXAM: Female, 53 years old. Follow-up fracture TECHNIQUE: 3 view(s) of the wrist were obtained. COMPARISON: None. FINDINGS: There is no evidence of fracture or dislocation. There are mild degenerative changes. There are no radiodense foreign bodies. RAD/Wrist min 3 Views IMPRESSION: No fracture or dislocation in the left wrist. Mild degenerative change. Please see left hand radiographs for additional details. Electronically Signed: Jw Lopez, at 21:40 EDT Tel , Service support ,
--- NOTE | 2019-01-01 15:02 | RAD_ITS ---
STUDY: X-RAY - LEFT HAND REASON FOR EXAM: Female, 53 years old. Fracture TECHNIQUE: 3 view(s) of the hand. COMPARISON: 12/20/2018 FINDINGS: The study is limited by suboptimal positioning. Again noted is a comminuted fracture of the distal fifth metacarpal which is grossly unchanged when compared with the prior exam. There is no new fracture identified. RAD/Hand Min 3 Views IMPRESSION: Study limited by suboptimal positioning. Redemonstration of a comminuted fracture of the distal fifth metacarpal which is grossly unchanged when compared with the prior exam. Electronically Signed: Jw Lopez, at 21:38 EDT Tel , Service support ,
== END | disposition home or self-care (01) ==
LOC: HPRAD 15:02
PROVIDERS: Family Provider Nurse Practitioner Family; PCP Nurse Practitioner Family; Referring Provider Physician Assistant; Visit Provider Physician Assistant
DX: S69.92XA Unspecified injury of left wrist, hand and finger(s), initial encounter (principal); S49.92XA Unspecified injury of left shoulder and upper arm, initial encounter; W19.XXXA Unspecified fall, initial encounter
CPT/HCPCS: 73060; 73110; 73130

== ENCOUNTER 2019-03-01 22:04 | Emergency (ER) | payer MEDICAID, SELFPAY ==
[2019-01-01 14:44] VITALS: BMI 34.7
[2019-03-01 22:06] VITALS: BP 162/72; PULSE 64; RESP 18; TEMP 36.2; O2SAT 99; BMI 30.7
--- NOTE | 2019-03-01 22:18 | ED.DCSUM_ITS ---
- ER Visit Summary Date of Service: 03/01/19 Chief Complaint: Back pain History of Present Illness: The patient is a 53 F with a recurrence of her sciatica. The patient has a history of chronic back pain and sciatica. She follows with pain management. She is taking her home medications, with no relief. She says the pain started today after she was active. She was cleaning, baking, and moving furniture. The pain starts in her right buttock and radiates down her right leg. She denies any new weakness or numbness. She has some chronic weakness and decreased sensation in her left leg from a prior stroke, but nothing new. She denies any bowel or bladder changes. Denies any fever or systemic symptoms. Denies any abdominal or GI symptoms. Denies urinary symptoms. Physical Examination: Afebrile and vital signs unremarkable. Patient alert and oriented. Appears uncomfortable, but is able to move, sit up, etc. Her lumbar spine is nontender. She does have some lower right back tenderness into her upper buttock. Straight leg raise is negative. Good strength and sensation distally. No saddle anesthesias. Test Results: None indicated??patient has had imaging including MRI that shows chronic degenerative changes. Emergency Department Course and Treatment: Patient was treated with morphine here for her breakthrough pain. She declined muscle relaxers, says she has them at home. Will reassess. On reevaluation, patient is feeling better. She would like to go home. She has pain medicine and muscle relaxers at home. She will follow-up with her physician. Treatment Plan: As above Disposition: As above Impression: 1. Right sciatica This note was generated with [employer] dictation software. It may contain incorrect words, spelling, and punctuation that were not noted in review of the chart prior to signing ED Disposition - Plan for ED Patient: Instructions: BACK PAIN w/ SCIATICA Referrals: Jing Reid, NICOLA-C [Primary Care Provider] -
--- NOTE | 2019-03-01 22:21 | DCINST.ED_ITS ---
ED Disposition - Plan for ED Patient: Instructions: BACK PAIN w/ SCIATICA Referrals: Jing Reid, ENGINEER FISHING VESSEL-C [Primary Care Provider] -
--- NOTE | 2019-03-01 22:21 | ED.DEP ---
ED Disposition - Plan for ED Patient: Instructions: BACK PAIN w/ SCIATICA Referrals: Jing Reid, CARDIAC CATH TECHNOLOGIST-C [Primary Care Provider] -
[2019-03-01] MEDS: Morphine 4 MG/ML Syringe SC (22:34)
[2019-03-01 23:01] VITALS: PULSE 70; O2SAT 96
== END 2019-03-01 23:01 | disposition home or self-care (01) ==
LOC: ED 22:24
PROVIDERS: Emergency Provider Emergency Medicine; Family Provider Nurse Practitioner Family; PCP Nurse Practitioner Family
DX: M54.41 Lumbago with sciatica, right side (principal); G89.29 Other chronic pain; I63.9 Cerebral infarction, unspecified; I69.344 Monoplegia of lower limb following cerebral infarction affecting left non-dominant side; R20.9 Unspecified disturbances of skin sensation; G35 Multiple sclerosis; Z72.0 Tobacco use
CPT/HCPCS: 96372; 99282

== ENCOUNTER 2019-04-17 12:47 | Emergency (ER) | payer MEDICAID, SELFPAY ==
[2019-04-17 12:51] VITALS: BP 157/89; PULSE 66; RESP 16; TEMP 36.7; O2SAT 100; BMI 30.7
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
[2019-04-17] MEDS: Morphine 4 MG/ML Syringe 6 MG IM (13:51)
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
[2019-04-17 16:23] VITALS: BP 143/96; PULSE 73; RESP 16; O2SAT 96
== END 2019-04-17 16:32 | disposition home or self-care (01) ==
PROVIDERS: Emergency Provider Emergency Medicine; Family Provider Nurse Practitioner Family; PCP Nurse Practitioner Family
DX: S51.812A Laceration without foreign body of left forearm, initial encounter (principal); S80.01XA Contusion of right knee, initial encounter; V49.9XXA Car occupant (driver) (passenger) injured in unspecified traffic accident, initial encounter; Y93.9 Activity, unspecified; Y92.9 Unspecified place or not applicable; M51.36 Other intervertebral disc degeneration, lumbar region; G35 Multiple sclerosis; M06.9 Rheumatoid arthritis, unspecified; Z79.82 Long term (current) use of aspirin; Z79.02 Long term (current) use of antithrombotics/antiplatelets; Z79.899 Other long term (current) drug therapy; Z87.891 Personal history of nicotine dependence
CPT/HCPCS: 72070; 72100; 73090; 96372; 99283

== ENCOUNTER 2019-05-12 20:06 | Emergency (ER) | payer MEDICAID, SELFPAY ==
[2019-05-12 20:08] VITALS: BP 134/70; PULSE 57; RESP 20; TEMP 36.5; O2SAT 96; BMI 28.9
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
[2019-05-12] MEDS: HYDROcodone Bitartrate/Apap 5/325 Tablet PO (21:08)
== END 2019-05-12 21:14 | disposition home or self-care (01) ==
PROVIDERS: Emergency Provider Emergency Medicine; PCP Nurse Practitioner Family
DX: M51.36 Other intervertebral disc degeneration, lumbar region (principal); G89.4 Chronic pain syndrome; I63.9 Cerebral infarction, unspecified; I69.334 Monoplegia of upper limb following cerebral infarction affecting left non-dominant side; Z79.02 Long term (current) use of antithrombotics/antiplatelets; Z79.891 Long term (current) use of opiate analgesic
CPT/HCPCS: 99283

== ENCOUNTER 2019-05-14 16:39 | Emergency (ER) | payer MEDICAID, SELFPAY ==
[2019-05-14 16:40] VITALS: BP 144/74; PULSE 60; RESP 18; TEMP 37.2; O2SAT 100; BMI 30.7
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
[2019-05-14] MEDS: morphine 8 MG/ML Syringe IM (17:07)
== END 2019-05-14 17:38 | disposition home or self-care (01) ==
LOC: ED 16:57
PROVIDERS: Emergency Provider Emergency Medicine; PCP Nurse Practitioner Family
DX: M54.5 Low back pain (principal); G89.29 Other chronic pain; F17.200 Nicotine dependence, unspecified, uncomplicated; Z86.73 Personal history of transient ischemic attack (TIA), and cerebral infarction without residual deficits
CPT/HCPCS: 96372; 99282

== ENCOUNTER → 2019-06-13 13:06 | Outpatient (CLI) | payer MEDICAID, SELFPAY ==
[2019-05-14 16:40] VITALS: BMI 30.7
[2019-06-13 14:45] LABS: Amphetamine Urine VISTA NEGATIVE (<1000 ng/mL); Barbiturate Urine VISTA NEGATIVE (< 200 ng/mL); Benzodiazepine Urine VISTA NEGATIVE (< 200 ng/mL); Cocaine Urine VISTA NEGATIVE (< 300 ng/mL); Ecstacy Urine VISTA NEGATIVE (< 500 ng/mL); Methadone Urine VISTA NEGATIVE (< 300 ng/mL); PCP Urine VISTA NEGATIVE (< 25 ng/mL); THC Urine VISTA NEGATIVE (< 50 ng/mL); Vista UDS pH Range 5
== END ==
PROVIDERS: PCP Nurse Practitioner Family; Referring Provider Anesthesiology Pain Medicine; Visit Provider Anesthesiology Pain Medicine
DX: F11.20 Opioid dependence, uncomplicated (principal)
CPT/HCPCS: 80307

== ENCOUNTER 2019-07-14 20:18 | Emergency (ER) | payer MEDICAID, SELFPAY ==
[2019-07-14 20:19] VITALS: BP 120/95; PULSE 62; RESP 18; TEMP 36.7; O2SAT 98; BMI 30.7
--- NOTE | 2019-07-14 20:35 | ED.DCSUM_ITS ---
History of Present Illness Chief Complaint: Other, Pain/Inj Detail of Chief Complaint: back pain Informant: Patient Onset: Today Context: - - awoke with symptoms Chronic pain exacerbated by: unk; cleaned the house yesterday Timing: Continuous Quality: Aching Location: Thoracic, Lumbar, - - lef shoulder Current Severity: Severe Maximum Severity: Severe Worsened by: improves with: Movement Relieved by: Remaining Still. Not Relieved By: Medications Associated Symptoms: - - No numbness or tingling, radiation to lower extremities, bowel or bladder dysfunction, dysuria, abdominal pain, chest pain Narrative: No known injury. Cleaned the house yesterday and woke up with exacerbated symptoms today. She has the symptoms daily and sees pain management for it, she took her usual medications today but it did not help whereas usually does. She has no new symptoms. She was seen here in April for a similar exacerbation and an injection of morphine helped and she is asking for that again. It is the weekend and her doctor referred her here since it is after hours. No recent illnesses or fevers. No recent travel, she has not been out of her house since she was last here in April, because of the coronavirus. Prior similar symptoms: Yes, With Prior Back Pain - Past Medical History (1) Degenerative disc disease, lumbar Status: Chronic (2) Multiple sclerosis Status: Chronic (3) Rheumatoid arthritis Status: Chronic (4) Stroke Status: Chronic Comment: with chronic left hemiparesis, worse in arm Past Medical History - Allergies and Home Meds Allergies/Adverse Reactions: Allergies bee venom protein (honey bee) Allergy (Verified 07/14/19 20:22) Anaphylaxis mushroom Allergy (Verified 07/14/19 20:22) Angioedema Sulfa (Sulfonamide Antibiotics) Allergy (Verified 07/14/19 20:22) Hives Primary Care Physician: Jing Reid NP-C [Primary Care Provider] - Surgical History: noncontributory, - - no prior back surgery Lives: Alone Smoking Status: Current every day smoker Review of Systems General: Denies: Chills, Fever, Sweats Eyes: Denies: Visual changes - bilaterally, Diplopia Cardiovascular: Denies: Chest pain, Palpitations Respiratory: Denies: Dyspnea, Cough Gastrointestinal: Denies: Abdominal pain, Nausea, Vomiting Musculoskeletal: Reports: Back pain, Extremity Pain. Denies: Neck pain, Swelling Skin: Denies: Rash, Wounds Neurological: Reports: Weakness - Left side, chronic, Numbness - Left side, chronic. Denies: Headache, Parasthesia Physical Exam Vital Signs/Narrative: Vital Signs Temp Pulse Resp BP Pulse Ox 07/14/19 20:19 98.0 F 62 18 120/95 H 98 Inital Vital Signs reviewed: Yes General: Well nourished, Well developed Head: Normocephalic, Atraumatic Eyes: Perrl, EOMI Neck: Supple, Nontender Cardiovascular: Regular rate, Regular rhythm, No murmurs. Negative for: Tachycardia Respiratory: No distress, CTA bilaterally, Chest nontender Abdomen: Soft, Nontender, Nondistended, Normal bowel sounds Back: Normal Inspection, Negative SLR - Right, Negative SLR - Left, - - limited ROM due to pain Extremeties: Nontender - but has pain left shoulder w/ attempted movement, No edema Skin: Normal color, No rash, No Trauma Neuro: Alert, Oriented, Normal DTR, Normal Gait, Weakness - LUE, Parasthesia - left upper and lower ext but can feel touch Psychological: Normal affect, Normal Mood Diagnostic/Tx/Re-eval - Medical Decision Making Patient denies any symptoms of cauda equina syndrome or conus medullaris. She is having worsening of her chronic symptoms and is asking for something for pa in. We will give her 1 injection of morphine and advised her to follow-up with pain management for persistent exacerbated symptoms. She is comfortable with that plan and going home at this time. ED Disposition - Plan for ED Patient: Disposition: Home or Assisted Living Diagnosis: Acute exacerbation of chronic low back pain Instructions: ED Back Pain Acute or Chronic Referrals: Flores Larsen MD [STAFF PHYSICIAN] - Jing Reid NP-C [Primary Care Provider] - 3-5 Days if not improving
[2019-07-14] MEDS: Morphine 4 MG/ML Syringe IM (20:59)
== END 2019-07-14 21:20 | disposition home or self-care (01) ==
LOC: ED 20:49
PROVIDERS: Emergency Provider Emergency Medicine; PCP Nurse Practitioner Family
DX: M54.5 Low back pain (principal); G89.29 Other chronic pain; M06.9 Rheumatoid arthritis, unspecified; F17.200 Nicotine dependence, unspecified, uncomplicated; Z86.73 Personal history of transient ischemic attack (TIA), and cerebral infarction without residual deficits
CPT/HCPCS: 96372; 99282

== ENCOUNTER 2019-08-05 15:00 | Emergency (ER) | payer MEDICAID, SELFPAY ==
[2019-08-05 15:01] VITALS: BP 174/74; PULSE 61; RESP 18; TEMP 36.7; O2SAT 100; BMI 29.7
--- NOTE | 2019-08-05 15:16 | ED.VIS.BACK ---
History of Present Illness Chief Complaint: Back Detail of Chief Complaint: neck/back pain Informant: Patient Onset: Days Context: Onset with activity - noticed when woke up from sleep 2 AMs ago Injury: - - none known Timing: Continuous Quality: Aching - and sore Location: Thoracic - right upper and right neck Current Severity: Moderate Maximum Severity: Severe Worsened by: improves with: - - worse w/ moving head to the right Relieved by: Remaining Still Associated Symptoms: - - No associated neurologic symptoms. Patient has chronic residual weakness and numbness in her left upper extremity from a stroke, as well as some weakness in her left lower extremity. None of that is different. Narrative: Patient awoke with pain in her right neck and upper back for the past 2 days, has tried nothing for the pain. Worse when she moves to the ipsilateral side. No new neurologic symptoms. No injury that she knows of. No ear pain or changes in her hearing, fevers, head injuries recently, or headache. No bowel or bladder dysfunction. No changes in her lower extremity or upper extremity neurologic symptoms. Prior similar symptoms: Yes, With Prior Back Pain - Past Medical History (1) Degenerative disc disease, lumbar Status: Chronic (2) Multiple sclerosis Status: Chronic (3) Rheumatoid arthritis Status: Chronic (4) Stroke Status: Chronic Comment: with chronic left hemiparesis, worse in arm Past Medical History - Allergies and Home Meds Allergies/Adverse Reactions: Allergies bee venom protein (honey bee) Allergy (Verified 08/05/19 15:01) Anaphylaxis mushroom Allergy (Verified 08/05/19 15:01) Angioedema Sulfa (Sulfonamide Antibiotics) Allergy (Verified 08/05/19 15:01) Hives Primary Care Physician: Jing Reid NP-C [Primary Care Provider] - Surgical History: noncontributory, - - no prior back surgery Lives: Alone - Ambulatory with a cane at baseline Smoking Status: Current every day smoker Review of Systems General: Denies: Chills, Fever, Sweats Eyes: Denies: Visual changes - bilaterally, Diplopia ENT: Denies: Bilateral ear pain, Rhinorrhea, Sore throat Cardiovascular: Denies: Chest pain, Palpitations Respiratory: Denies: Dyspnea, Cough, Dyspnea on exertion Gastrointestinal: Denies: Abdominal pain, Nausea, Vomiting, Diarrhea, Melena, Hematochezia Genitourinary: Denies: Dysuria, Hematuria, Frequency Musculoskeletal: Reports: Neck pain, Back pain - Low back, chronic, unchanged. Denies: Swelling, Extremity Pain Skin: Denies: Rash, Wounds Neurological: Reports: Weakness, Numbness. Denies: Headache Physical Exam Vital Signs/Narrative: Vital Signs Temp Pulse Resp BP Pulse Ox 08/05/19 15:01 98.0 F 61 18 174/74 H 100 Inital Vital Signs reviewed: Yes General: Well nourished, Well developed, Obese, - - Well-appearing, no distress Head: Normocephalic, Atraumatic Eyes: Perrl, EOMI ENT: Moist mucous membranes, No rhinorrhea, TM's clear, - - No mastoid erythema, swelling, tenderness. Negative for: Nasal congestion, Sinus tenderness Neck: Supple, No lymphadenopathy, - - Tenderness throughout the right paraspinous cervical musculature, no midline tenderness. No rashes. No sternocleidomastoid tenderness. Respiratory: No distress Back: Paraspinal Tenderness - Right paraspinal upper thoracic musculature, from trapezius down into the rhomboids, no other areas of tenderness.. Negative for: Spinal tenderness Skin: Normal color, No rash, No Trauma Neuro: Alert, Oriented, Weakness - Mild left side, Parasthesia - Mild left side Psychological: Normal affect, Normal Mood Diagnostic/Tx/Re-eval - Medical Decision Making Patient given symptomatic treatment of reassured this is musculoskeletal pain, I do not think she needs any narcotic prescriptions for this. She was given a dose of Norflex and IM Toradol here, she has had these before and tolerated them. Discharged home with instructions for supportive care and advised to follow-up with her doctor. She is comfortable with that plan. ED Disposition - Plan for ED Patient: Disposition: Home or Assisted Living Diagnosis: Strain of cervical portion of right trapezius muscle Instructions: ED Sprain Strain Neck Referrals: Jing Reid NP-C [Primary Care Provider] - 10-14 Days if not better
[2019-08-05] MEDS: Ketorolac 30 MG/ML Syringe IM (15:26)
[2019-08-05] MEDS: Orphenadrine 60 MG/2 ML Ampul IM (15:26)
== END 2019-08-05 15:31 | disposition home or self-care (01) ==
LOC: ED 15:26
PROVIDERS: Emergency Provider Emergency Medicine; PCP Nurse Practitioner Family
DX: S16.1XXA Strain of muscle, fascia and tendon at neck level, initial encounter (principal); M06.9 Rheumatoid arthritis, unspecified; G35 Multiple sclerosis; F17.200 Nicotine dependence, unspecified, uncomplicated; E66.9 Obesity, unspecified; Z86.73 Personal history of transient ischemic attack (TIA), and cerebral infarction without residual deficits; Z79.02 Long term (current) use of antithrombotics/antiplatelets; Z79.899 Other long term (current) drug therapy; X58.XXXA Exposure to other specified factors, initial encounter; Y93.84 Activity, sleeping; Y92.003 Bedroom of unspecified non-institutional (private) residence as the place of occurrence of the external cause; Y99.8 Other external cause status
CPT/HCPCS: 96372; 99282

== ENCOUNTER 2019-09-19 10:06 | Emergency (ER) | payer MEDICAID, SELFPAY ==
[2019-09-19 10:07] VITALS: BP 135/74; PULSE 64; RESP 18; TEMP 36.9; O2SAT 100; BMI 31.4
--- NOTE | 2019-09-19 10:25 | ED.DCSUM_ITS ---
- ER Visit Summary Date of Service: 09/19/19 Chief Complaint: Back pain History of Present Illness: The patient is a 54 F who presents with right lower back pain that became worse yesterday. Patient states the pain radiates down her right lower extremity. Patient states this feels similar to previous flar eups of her sciatica. Patient denies any bowel or bladder changes. Patient admits to some tingling in her right leg. Patient denies any weakness. Patient describes her pain as sharp. Patient states her pain is worse with sitting. Patient denies any trauma or injury. Patient states she has been caring for her daughter and grandchildren recently. Patient states she has an appointment scheduled next week for back injections from her pain management physician. Physical Examination: Vital signs are stable. Patient is afebrile. Patient is in no acute distress. Musculoskeletal exam reveals tenderness over the right lumbar paraspinal muscles. There is some spasm of the right lumbar paraspinal muscles. There is no midline tenderness. There is no bony crepitance or step- off. There is also tenderness over the sciatic notch. Range of motion was limited in all motions of the lumbar spine secondary to pain. Strength is 5/5 bilaterally in the lower extremities. Deep tendon reflexes are 2+/4 bilaterally in the lower extremities. Emergency Department Course and Treatment: Patient was given injections of morphine and Norflex here. Patient was instructed to continue her medications as previously prescribed. Patient was instructed to follow-up with her primary care physician and pain management physician as scheduled. Patient understood and was agreeable with the plan. All questions were answered. Disposition: Discharge home Impression: 1. Sciatica This note was generated with centrose dictation software. It may contain incorrect words, spelling, and punctuation that were not noted in review of the chart prior to signing ED Disposition - Plan for ED Patient: Disposition: Home or Assisted Living Diagnosis: Sciatica Instructions: ED Back Pain Acute or Chronic Referrals: Jing Reid NP-C [Primary Care Provider] - 5-7 Days Flores Larsen MD [STAFF PHYSICIAN] - Keep Elsa appointment
[2019-09-19] MEDS: Orphenadrine 60 MG/2 ML Ampul IM (10:28)
[2019-09-19] MEDS: Morphine 4 MG/ML Syringe IM (10:29)
[2019-09-19 10:37] VITALS: BP 119/61; PULSE 60; RESP 18; O2SAT 98
== END 2019-09-19 11:03 | disposition home or self-care (01) ==
LOC: ED 10:40
PROVIDERS: Emergency Provider Emergency Medicine; PCP Nurse Practitioner Family
DX: M54.41 Lumbago with sciatica, right side (principal); E66.9 Obesity, unspecified; Z72.0 Tobacco use; Z86.73 Personal history of transient ischemic attack (TIA), and cerebral infarction without residual deficits
CPT/HCPCS: 96372; 99283

== ENCOUNTER 2019-12-14 13:49 | Emergency (ER) | payer MEDICAID, SELFPAY ==
[2019-12-14 13:50] VITALS: BP 122/68; PULSE 74; RESP 18; TEMP 37.1; O2SAT 97; BMI 32.1
--- NOTE | 2019-12-14 14:15 | ED.VIS.BACK ---
History of Present Illness Informant: Patient Onset: Today Context: Gradual Onset Injury: Bending Timing: Continuous Quality: Sharp Location: Lumbar Current Severity: Severe Maximum Severity: Severe Worsened by: improves with: Movement, Ambulation, Bending Relieved by: Nothing Associated Symptoms: Radiation to Right Leg, Radiation to Left Leg Narrative: 54-year-old female history of CVA history of chronic back pain currently in pain management presents to the emergency department with a flareup of her chronic back pain. Her daughter is recovering from a heart valve replacement surgery so she has been helping her do things around her house which she thinks is flared up her back pain. She woke up this morning with worsening back pain. She took a Percocet which she is on 3 times a day from pain management but it did not improve her pain. Pain is in the lower back and radiates down both legs which is consistent with her chronic pain. Patient has not had any trauma, she denies any loss of bowel or bladder function, she denies any weakness or paresthesias. She has not had a fever. No vomiting or diarrhea. No difficulty urinating or constipation. Prior similar symptoms: Yes, With Prior Back Pain Recent Illness/Hospitalization: No <Av Mcgowan - Last Filed: 12/14/19 14:15> <Martell Lozano - Last Filed: 12/14/19 15:38> Chief Complaint: Back Past Medical History Prior records reviewed: Yes Past Medical History: - - CVA, chronic back pain, hypertension, RA, MS Surgical History: noncontributory, - - no prior back surgery Lives: With Family Smoking Status: Current every day smoker Alcohol: None Drugs: None <Av Mcgowan - Last Filed: 12/14/19 14:15> <Martell Lozano - Last Filed: 12/14/19 15:38> - Allergies and Home Meds Allergies/Adverse Reactions: Allergies bee venom protein (honey bee) Allergy (Verified 12/14/19 13:52) Anaphylaxis mushroom Allergy (Verified 12/14/19 13:52) Angioedema Sulfa (Sulfonamide Antibiotics) Allergy (Verified 12/14/19 13:52) Hives Primary Care Physician: Jing Reid, NICOLA-C [Primary Care Provider] - Review of Systems All systems negative except as indicated General: Denies: Chills, Fever, Sweats Eyes: Denies: Visual changes - bilaterally, Diplopia ENT: Denies: Rhinorrhea, Sore throat Cardiovascular: Denies: Chest pain, Palpitations Respiratory: Denies: Dyspnea, Cough, Dyspnea on exertion Gastrointestinal: Denies: Abdominal pain, Nausea, Vomiting, Diarrhea, Melena, Hematochezia Genitourinary: Denies: Dysuria, Hematuria, Frequency Musculoskeletal: Reports: Back pain. Denies: Swelling, Extremity Pain Skin: Denies: Rash, Wounds Neurological: Denies: Headache, Weakness, Parasthesia, Numbness <Av Mcgowan - Last Filed: 12/14/19 14:15> Physical Exam Vital Signs/Narrative: Vital Signs Temp Pulse Resp BP Pulse Ox 12/14/19 13:50 98.7 F 74 18 122/68 H 97 Inital Vital Signs reviewed: Yes General: Well nourished, Well developed Head: Normocephalic, Atraumatic Eyes: Perrl, EOMI ENT: Moist mucous membranes, No rhinorrhea Neck: Supple, Nontender Cardiovascular: Regular rate, Regular rhythm, No murmurs Respiratory: No distress, CTA bilaterally, Chest nontender Abdomen: Soft, Nontender, Nondistended, Normal bowel sounds Back: Normal Inspection, Paraspinal Tenderness, Positive SLR - Right, Positive SLR - Left. Negative for: Spinal tenderness, CVA tenderness Extremeties: Nontender, No edema Skin: Normal color, No rash Neuro: Alert, Oriented, Normal Strength, Normal Sensation, Normal DTR, Normal Gait, Normal Reflexes Psychological: Normal affect, Normal Mood <Av Mcgowan - Last Filed: 12/14/19 14:15> Vital Signs/Narrative: Vital Signs Temp Pulse Resp BP Pulse Ox 12/14/19 13:50 98.7 F 74 18 122/68 H 97 <Martell Lozano - Last Filed: 12/14/19 15:38> Diagnostic/Tx/Re-eval - Medical Decision Making Patient has no deficits on exam or signs or symptoms of cauda equina syndrome. Patient will be given a dose of morphine and a dose of Norflex in the emergency department. She will continue her Percocet at home. She declined a prescription for Lidoderm patch. She will follow-up with her pain management physician. She will be discharged. <Av Mcgowan - Last Filed: 12/14/19 14:15> - Medical Decision Making Patient was seen with me. I did a [id number] examination with the patient. Patient presents with worsening back pain today. Patient has a history of chronic pain and sees Dr. Larsen. Patient states she will be due for injections of her back in the near future. Patient denies any new trauma or injury. Patient denies any new paresthesias or weakness. Patient denies any bowel or bladder changes. Patient denies any saddle anesthesia. Vital signs are stable. Patient is afebrile. Patient is in no acute distress. Musculoskeletal exam reveals tenderness over the lumbar spine and paraspinal muscles. There is no bony crepitance or step-off. Range of motion was limited in all motions of the lumbar spine secondary to pain. There are no focal motor or sensory deficits noted. Patient was given an injection but she is to morphine and Norflex here in the emergency department. Patient was instructed to continue her Percocet at home. Patient was instructed to follow-up with her pain management physician in 5 to 7 days. Patient understood and was agreeable with the plan. All questions were answered. <Martell Lozano - Last Filed: 12/14/19 15:38> ED Disposition <Av Mcgowan - Last Filed: 12/14/19 14:15> <Martell Lozano - Last Filed: 12/14/19 15:38> - Plan for ED Patient: Disposition: Home or Assisted Living Diagnosis: Degenerative disc disease, lumbar, Stroke, Multiple sclerosis, Rheumatoid arthritis, Acute exacerbation of chronic low back pain Instructions: ED Chronic Pain Referrals: Jing Reid, NICOLA-C [Primary Care Provider] -
[2019-12-14] MEDS: morphine 10 MG/ML Syringe IM (14:48)
[2019-12-14] MEDS: Orphenadrine 60 MG/2 ML Ampul IM (14:49)
== END 2019-12-14 15:20 | disposition home or self-care (01) ==
LOC: ED 14:23
PROVIDERS: Emergency Provider Physician Assistant Medical; PCP Nurse Practitioner Family
DX: G89.29 Other chronic pain (principal); M51.36 Other intervertebral disc degeneration, lumbar region; M06.9 Rheumatoid arthritis, unspecified; G35 Multiple sclerosis; F17.200 Nicotine dependence, unspecified, uncomplicated; I10 Essential (primary) hypertension; Z86.73 Personal history of transient ischemic attack (TIA), and cerebral infarction without residual deficits; Z79.02 Long term (current) use of antithrombotics/antiplatelets; Z79.891 Long term (current) use of opiate analgesic; Z79.899 Other long term (current) drug therapy
CPT/HCPCS: 96372; 99282

== ENCOUNTER 2020-03-12 21:28 | Emergency (ER) | payer MEDICAID, SELFPAY ==
[2020-03-12 21:29] VITALS: BP 138/75; PULSE 60; RESP 16; TEMP 36.2; O2SAT 100; BMI 30.9
[2020-03-12] MEDS: Morphine 4 MG/ML Syringe IM (22:54)
[2020-03-12] MEDS: predniSONE 20 MG Tablet 40 MG PO (22:54)
--- NOTE | 2020-03-12 23:10 | ED.VISSUMM ---
- ER Visit Summary Date of Service: 03/12/20 Chief Complaint: History of Present Illness: The patient is a 54 F who presents with bilateral hip pain. Patient states that started earlier today. She has been on her feet more than normal and this is exacerbating her chronic pain. She has a history of chronic low back pain with sciatica. She sees Dr. Larsen for this. She has not had a fever. The pain radiates down her left leg. The pain is worse on the left-hand side. Walking and movement make it worse. She has tried Tylenol, Percocet and gabapentin without relief. She denies any bowel or bladder incontinence. Physical Examination: Vital signs reviewed. HEENT exam unremarkable. Heart is regular rate and rhythm without murmurs. Lungs are clear to auscultation. Abdomen is soft and nontender. The patient's back is tender in the left lumbar paraspinal region. She does have some left hip pain in the lateral and posterior area. She does have sciatica symptoms. Extremities reveal no edema. Skin exam normal. Neurologic exam normal including reflexes. Test Results: None performed Emergency Department Course and Treatment: The patient was given morphine and prednisone. This is an exacerbation of her chronic pain. Do not feel she requires any imaging studies. I will send her home with prednisone. She will continue her home medicines and will call pain management for follow-up. Treatment Plan: [] Disposition: Discharge Impression: Sciatica, left This note was generated with [employer] dictation software. It may contain incorrect words, spelling, and punctuation that were not noted in review of the chart prior to signing ED Disposition - Plan for ED Patient: Disposition: Home or Assisted Living Instructions: Understanding Sciatica Referrals: Jing Reid AIRCRAFT MAINTENANCE MANAGER, AIRCRAFT MAINTENANCE MANAGER-C [Primary Care Provider] -
[2020-03-12 23:17] VITALS: PULSE 80; RESP 16; O2SAT 98
== END 2020-03-12 23:25 | disposition home or self-care (01) ==
LOC: ED 23:21
PROVIDERS: Emergency Provider Emergency Medicine; PCP Nurse Practitioner Family
DX: M54.42 Lumbago with sciatica, left side (principal); G89.29 Other chronic pain; Z72.0 Tobacco use; Z86.73 Personal history of transient ischemic attack (TIA), and cerebral infarction without residual deficits; Z79.02 Long term (current) use of antithrombotics/antiplatelets
CPT/HCPCS: 96372; 99282

== ENCOUNTER → 2020-05-15 14:56 | Outpatient (CLI) | payer MEDICAID, SELFPAY ==
[2020-05-15 18:45] LABS: Amphetamine Urine VISTA NEGATIVE (<1000 ng/mL); Barbiturate Urine VISTA NEGATIVE (< 200 ng/mL); Benzodiazepine Urine VISTA NEGATIVE (< 200 ng/mL); Cocaine Urine VISTA NEGATIVE (< 300 ng/mL); Ecstacy Urine VISTA NEGATIVE (< 500 ng/mL); Methadone Urine VISTA NEGATIVE (< 300 ng/mL); PCP Urine VISTA NEGATIVE (< 25 ng/mL); THC Urine VISTA NEGATIVE (< 50 ng/mL); Vista UDS pH Range 5
== END ==
PROVIDERS: PCP Nurse Practitioner Family; Referring Provider Anesthesiology Pain Medicine; Visit Provider Anesthesiology Pain Medicine
DX: F11.20 Opioid dependence, uncomplicated (principal)
CPT/HCPCS: 80307

== ENCOUNTER → 2020-08-14 12:05 | Outpatient (CLI) | payer MEDICAID, SELFPAY ==
--- NOTE | 2020-08-14 12:10 | RAD_ITS ---
STUDY: X-RAY - PELVIS AND LEFT HIP REASON FOR EXAM: Female, 55 years old. HIP PAIN TECHNIQUE: 3 views of the pelvis and hip. COMPARISON: 12/20/2018. FINDINGS: No acute fracture, dislocation or osseous destruction. Moderate lumbar spine arthrosis. Mild sacroiliac joint arthrosis. Mild pubic symphysis arthrosis. Minimal joint space narrowing at the left hip. No significant productive changes. Left-sided transitional lumbosacral anatomy. No significant soft tissue swelling. Multiple soft tissue calcifications. RAD/HIP, UNI W/ Pelvis 2-3 Views IMPRESSION: Left hip and pelvis intact Left-sided transitional lumbosacral anatomy Degenerative changes, as above Electronically Signed: Martell Treviño DO at 10:12 EDT Tel , Service support ,
== END ==
PROVIDERS: PCP Nurse Practitioner Family; Referring Provider Anesthesiology Pain Medicine; Visit Provider Anesthesiology Pain Medicine
DX: M25.552 Pain in left hip (principal)
CPT/HCPCS: 73502

== ENCOUNTER → 2021-02-23 14:19 | Outpatient (CLI) | payer MEDICAID, SELFPAY | PROVIDERS: PCP Nurse Practitioner Family; Referring Provider Anesthesiology Pain Medicine; Visit Provider Anesthesiology Pain Medicine | DX: F11.20 Opioid dependence, uncomplicated (principal) ==

== ENCOUNTER 2021-08-14 15:28 | Emergency (ER) | payer MEDICAID, SELFPAY ==
[2021-08-14 15:29] VITALS: BP 127/94; PULSE 80; RESP 16; TEMP 36; O2SAT 99; BMI 29.8
--- NOTE | 2021-08-14 16:18 | EDS_ITS ---
HPI History of Present Illness Chief Complaint: Back Informant: patient Narrative Narrative: Patient complains of exacerbation of chronic back pain. She does see pain management. She takes about 2 or 3 Percocet a day. She is also on a Butrans patch. She played softball with her 16-year-old granddaughter about 3 days ago. She has had soreness in her back ever since. It is sore if she twists or if she reaches across chest with the right arm as the one she threw with. Its not tearing or ripping. She has never been syncopal or lightheaded. This is pain that she has commonly but it is worse now. Patient also placed a heating pad on it but it seemed to get worse so she came in here. [facility] Medical History Hx of TIA (transient ischemic attack) and stroke Home Medications aspirin 81 mg PO DAILY@0800 09/12/14 [History Last Taken 04/17/19] metoprolol tartrate 25 mg PO DAILY 09/12/14 [History Last Taken 04/17/19] albuterol sulfate 1 - 2 puff INHALATION Q4H PRN PRN 05/18/17 [History Last Taken 04/17/19] atorvastatin 40 mg PO DAILY 05/18/17 [History Last Taken 04/17/19] clopidogrel 75 mg PO DAILY 05/18/17 [History Last Taken 04/17/19] gabapentin 300 mg PO TID 06/03/18 [History Last Taken 04/17/19] buspirone 7.5 mg PO DAILY 09/03/18 [History Last Taken 04/17/19] lisinopril 20 mg PO DAILY 09/03/18 [History Last Taken 04/17/19] oxycodone myristate 18 mg PO BID 09/03/18 [History Last Taken 04/17/19] amitriptyline 25 mg PO QHS PRN 05/14/19 [History Last Taken Unknown] tizanidine 6 mg PO DAILY 05/14/19 [History Last Taken Unknown] cyclobenzaprine 10 mg PO BID PRN #10 tab 08/14/21 [Rx Last Taken Unknown] Allergy/AdvReac Type Severity Reaction Status Date / Time bee venom protein (honey bee) Allergy Anaphylaxis Verified 08/14/21 15:30 mushroom Allergy Angioedema Verified 08/14/21 15:30 Sulfa (Sulfonamide Allergy Hives Verified 08/14/21 15:30 Antibiotics) Social History Smoking Status: Current every day smoker tobacco type: cigarettes ROS ROS ED Constitutional Constitutional ED: Denies chills or fever(s) Eyes Eyes: Denies blurry vision ENT ENT ED: Denies rhinorrhea or sore throat Cardiovascular Cardiovascular: Denies chest pain or palpitations Respiratory/Chest Respiratory/Chest: Denies dyspnea or sputum Gastrointestinal Gastrointestinal: Denies nausea or vomiting Genitourinary Genitourinary ED: Denies dysuria Musculoskeletal Musculoskeletal: Reports other Details: See history of present illness Integumentary Denies rash Neurologic Neurologic: Denies paresthesias or weakness Endocrine Endocrinology: Denies polydipsia or polyuria Allergic/Immunologic Allergic/Immunologic ED: Denies urticaria EXAM Physical Exam Const Vital Signs: 08/14/21 15:29 Temperature 96.8 F L Temperature Source Temporal Pulse Rate 80 Respiratory Rate 16 Blood Pressure 127/94 H Blood Pressure Mean 105 Pulse Ox 99 Oxygen Delivery Method Room Air Positive well nourished and well developed General Appearance ED: well developed and NAD HEENT Reports moist mucous membranes Eyes General Eye ED: Negative for pale conjunctiva or scleral icterus Neck no JVD Resp normal respiratory effort and clear to auscultation bilaterally Resp Narrative: Lungs are clear bilaterally. No pain with deep breath Cardio regular rate and regular rhythm GI normal to inspection, nondistended, normoactive bowel sounds Back/Spine Back/Spine Narrative: Patient has palpable paraspinal tenderness mostly on the right. This starts up at the upper thoracic area and goes down to the upper lumbar. No skin changes. No bony tenderness. No deformities noted. No subcu air. Extremity normal to inspection General Extremety ED: Negative for edema or tenderness General Extremity: Negative for edema Psych mental status grossly normal Skin no rashes or lesions noted and no wounds MDM MDM MDM Narrative Medical decision making narrative: I explained to the patient that I cannot prescribe controlled substances. I will give her a dose of pain meds here. She has her Butrans patch on. She has her other meds. I will write her for a few days of Flexeril. She will stop her tizanidine during this time. We discussed using ice rather than heat. I do not think this requires imaging or blood work. Discharge Plan Triage Chief Complaint: Back ED Provider: Beny Baker Dx/Rx/DC Orders Clinical Impression: Thoracic myofascial strain Instructions: ED Back Sprain/Strain Prescriptions: New cyclobenzaprine 10 mg tablet 10 mg PO BID PRN (Reason: muscle spasm) Qty: 10 RF: 0 No Action aspirin 81 MG tablet,chewable 81 mg PO DAILY@0800 RF: 0 metoprolol tartrate 25 MG tablet 25 mg PO DAILY RF: 0 atorvastatin 40 MG tablet 40 mg PO DAILY RF: 0 clopidogrel 75 MG tablet 75 mg PO DAILY RF: 0 albuterol sulfate 1 INHALER inhaler 1 - 2 puff inhalation Q4H PRN PRN (Reason: Wheezing) RF: 0 gabapentin 300 MG capsule 300 mg PO TID RF: 0 buspirone 15 MG tablet 7.5 mg PO DAILY RF: 0 lisinopril 20 MG tablet 20 mg PO DAILY RF: 0 oxycodone myristate 9 MG cap,sprinkl,ER12hr(DONT CRUSH) 18 mg PO BID RF: 0 amitriptyline 25 MG tablet 25 mg PO QHS PRN (Reason: Sleep) RF: 0 tizanidine 6 MG capsule 6 mg PO DAILY RF: 0 Primary Care Provider: Jing Reid NP Referrals: Jing Reid NP, EDITOR MANAGING DIRECTOR-C [Primary Care Provider] - 3-5 Days if not improving Disposition Disposition: Home, Self Care
[2021-08-14] MEDS: cycloBENZAPRine HCl 10 MG Tablet PO (16:30)
[2021-08-14] MEDS: Morphine 4 MG/ML Syringe IM (16:30)
== END 2021-08-14 16:38 | disposition home or self-care (01) ==
PROVIDERS: Emergency Provider Emergency Medicine; PCP Nurse Practitioner Family; Visit Provider Emergency Medicine
DX: S29.019A Strain of muscle and tendon of unspecified wall of thorax, initial encounter (principal); X58.XXXA Exposure to other specified factors, initial encounter; G89.29 Other chronic pain; F17.210 Nicotine dependence, cigarettes, uncomplicated; Z86.73 Personal history of transient ischemic attack (TIA), and cerebral infarction without residual deficits; Z79.82 Long term (current) use of aspirin; Z79.02 Long term (current) use of antithrombotics/antiplatelets; Z79.899 Other long term (current) drug therapy; Z79.891 Long term (current) use of opiate analgesic; Y93.64 Activity, baseball; Y99.9 Unspecified external cause status; Y92.9 Unspecified place or not applicable
CPT/HCPCS: 96372; 99283

== ENCOUNTER 2021-09-06 20:12 | Emergency (ER) | payer MEDICAID, SELFPAY ==
[2021-09-06 20:13] VITALS: BP 136/76; PULSE 70; RESP 14; TEMP 36.2; O2SAT 100; BMI 27.8
--- NOTE | 2021-09-06 21:25 | RAD_ITS ---
EXAM: XR LEFT KNEE COMPLETE, 4 OR MORE VIEWS CLINICAL INDICATION: trauma TECHNIQUE: Four or more views of the left knee. This report was created using [employer] report generation technology. COMPARISON: None. FINDINGS: BONES/JOINTS: Unremarkable. No acute fracture. No subluxation. Normal alignment. Preservation of the joint space. No sclerotic or destructive changes observed. SOFT TISSUES: Unremarkable. No soft tissue swelling or gas. No radiopaque foreign body. RAD/Knee 4 or More Views IMPRESSION: Negative left knee x-rays. Electronically Signed: Rory Roberts MD at 22:00 EDT ,
--- NOTE | 2021-09-06 21:25 | RAD_ITS ---
EXAM: XR LEFT FOOT COMPLETE, 3 OR MORE VIEWS CLINICAL INDICATION: trauma TECHNIQUE: Frontal, lateral and oblique views of the left foot. This report was created using [employer] report generation technology. COMPARISON: None. FINDINGS: BONES/JOINTS: Bones are diffusely osteopenic. No acute fracture. No subluxation. Normal alignment. Preservation of the joint space. No sclerotic or destructive changes observed. SOFT TISSUES: Unremarkable. No soft tissue swelling or gas. No radiopaque foreign body. RAD/Foot min 3 Views IMPRESSION: Bones are diffusely osteopenic. Electronically Signed: Rory Roberts MD at 22:00 EDT ,
--- NOTE | 2021-09-06 22:14 | EDS_ITS ---
HPI HPI - Fall History of Present Illness Chief Complaint: Fall Narrative Narrative: Patient presents with left great toe and knee pain after fall out of bed. No head injury. She is denying any syncope or lightheadedness. Her great toenail did fall off [facility] Medical History Arthritis CVA (cerebral vascular accident) HTN (hypertension) Hx of TIA (transient ischemic attack) and stroke Multiple sclerosis Home Medications aspirin 81 mg PO DAILY@0800 09/12/14 [History Last Taken 04/17/19] metoprolol tartrate 25 mg PO DAILY 09/12/14 [History Last Taken 04/17/19] albuterol sulfate 1 - 2 puff INHALATION Q4H PRN PRN 05/18/17 [History Last Taken 04/17/19] atorvastatin 40 mg PO DAILY 05/18/17 [History Last Taken 04/17/19] clopidogrel 75 mg PO DAILY 05/18/17 [History Last Taken 04/17/19] gabapentin 300 mg PO TID 06/03/18 [History Last Taken 04/17/19] buspirone 7.5 mg PO DAILY 09/03/18 [History Last Taken 04/17/19] lisinopril 20 mg PO DAILY 09/03/18 [History Last Taken 04/17/19] oxycodone myristate 18 mg PO BID 09/03/18 [History Last Taken 04/17/19] amitriptyline 25 mg PO QHS PRN 05/14/19 [History Last Taken Unknown] tizanidine 6 mg PO DAILY 05/14/19 [History Last Taken Unknown] cyclobenzaprine 10 mg PO BID PRN #10 tab 08/14/21 [Rx Last Taken Unknown] cephalexin 500 mg PO Q6 #40 cap 09/06/21 [Rx Last Taken Unknown] naproxen [Naprosyn] 500 mg PO BID PRN #20 tab 09/06/21 [Rx Last Taken Unknown] Allergy/AdvReac Type Severity Reaction Status Date / Time bee venom protein (honey bee) Allergy Anaphylaxis Verified 09/06/21 20:13 mushroom Allergy Angioedema Verified 09/06/21 20:13 Sulfa (Sulfonamide Allergy Hives Verified 09/06/21 20:13 Antibiotics) Social History Smoking Status: Current every day smoker tobacco type: cigarettes ROS ROS ED ROS Narrative Social: Noncontributory Medications: Reviewed Past medical history: Reviewed Review of systems General: Patient has no head injury or loss of consciousness HEENT: No facial injury Neck: No neck pain Cardiovascular: Patient denies any chest pain or palpitations Chest wall: No chest wall contusions Respiratory: There is no shortness of breath GI: There is no nausea vomiting diarrhea or abdominal pain, no abdominal wall contusions Skin: No lacerations or abrasions Neurological: Patient has no memory loss, confusion, or any focal weakness Psychiatric: No recent behavioral changes Back: No back pain, no problems with ambulation Musculoskeletal: As in HPI All other systems are reviewed and normal EXAM Physical Exam Narrative Exam Narrative: Physical exam Vitals reviewed General: Does not appear in significant distress, no obvious injuries HEENT: No facial injury Head: No head injury Eyes: Extraocular movements intact Neck: No C-spine tenderness with full range of motion Heart: Regular rate normal pulses Chest wall: No chest wall pain Lungs clear lungs bilaterally with normal inspiration and expiration without tachypnea GI: Abdomen is soft and nontender there is no mass no guarding no abdominal wall contusion : Stable pelvis Musculoskeletal: Patient's left great toe nail is missing but the nail matrix seems to be intact there is no nailbed injury. There is very slight erythema. Otherwise she has some tenderness over the left knee but no obvious abrasions, no laxity on anterior medial lateral or posterior stressors. Normal extensor mechanism. No effusion. Skin: No abrasions or laceration Neurological: Patient is alert and oriented with no focal deficits Const Vital Signs: 09/06/21 20:13 Temperature 97.2 F L Temperature Source Temporal Pulse Rate 70 Respiratory Rate 14 Blood Pressure 136/76 H Blood Pressure Mean 96 Pulse Ox 100 Oxygen Delivery Method Room Air MDM MDM MDM Narrative Medical decision making narrative: X-rays are unremarkable. Because there is slight erythema I will treat with antibiotics. Otherwise I will discharge in stable condition Radiography Diagnostic Testing: Clinical Impression(s) from Imaging Studies Foot X-Ray 09/06/21 21:25 IMPRESSION: Bones are diffusely osteopenic. Electronically Signed: Rory Roberts MD at 22:00 EDT , Knee X-Ray 09/06/21 21:25 IMPRESSION: Negative left knee x-rays. Electronically Signed: Rory Roberts MD at 22:00 EDT , X-ray foot read by me is negative X-ray knee read by me is negative Discharge Plan Triage Chief Complaint: Fall ED Provider: Naseem Rasheed Dx/Rx/DC Orders Clinical Impression: Avulsion of nail, Contusion of knee Instructions: Bone Contusion Prescriptions: New cephalexin 500 mg capsule 500 mg PO Q6 Qty: 40 RF: 0 naproxen [Naprosyn] 500 mg tablet 500 mg PO BID PRN (Reason: pain) Qty: 20 RF: 0 No Action aspirin 81 MG tablet,chewable 81 mg PO DAILY@0800 RF: 0 metoprolol tartrate 25 MG tablet 25 mg PO DAILY RF: 0 atorvastatin 40 MG tablet 40 mg PO DAILY RF: 0 clopidogrel 75 MG tablet 75 mg PO DAILY RF: 0 albuterol sulfate 1 INHALER inhaler 1 - 2 puff inhalation Q4H PRN PRN (Reason: Wheezing) RF: 0 gabapentin 300 MG capsule 300 mg PO TID RF: 0 buspirone 15 MG tablet 7.5 mg PO DAILY RF: 0 lisinopril 20 MG tablet 20 mg PO DAILY RF: 0 oxycodone myristate 9 MG cap,sprinkl,ER12hr(DONT CRUSH) 18 mg PO BID RF: 0 amitriptyline 25 MG tablet 25 mg PO QHS PRN (Reason: Sleep) RF: 0 tizanidine 6 MG capsule 6 mg PO DAILY RF: 0 cyclobenzaprine 10 mg tablet 10 mg PO BID PRN (Reason: muscle spasm) Qty: 10 RF: 0 Primary Care Provider: Jing Reid NP Referrals: Jing Reid NP, DRUM SPRAYER-C [Primary Care Provider] - 3-5 Days Disposition Disposition: Home, Self Care
[2021-09-06] MEDS: HYDROcodone Bitartrate/Apap 5/325 Tablet PO (22:26)
[2021-09-06 22:28] VITALS: BP 135/85; PULSE 72; RESP 16; O2SAT 94
== END 2021-09-06 22:32 | disposition home or self-care (01) ==
PROVIDERS: Emergency Provider Emergency Medicine; PCP Nurse Practitioner Family; Visit Provider Emergency Medicine
DX: S80.01XA Contusion of right knee, initial encounter (principal); G35 Multiple sclerosis; Z86.73 Personal history of transient ischemic attack (TIA), and cerebral infarction without residual deficits; I10 Essential (primary) hypertension; M19.90 Unspecified osteoarthritis, unspecified site; Z79.899 Other long term (current) drug therapy; Z79.82 Long term (current) use of aspirin; F17.210 Nicotine dependence, cigarettes, uncomplicated; W06.XXXA Fall from bed, initial encounter; S91.202A Unspecified open wound of left great toe with damage to nail, initial encounter
CPT/HCPCS: 73564; 73630; 99283

== ENCOUNTER → 2021-09-16 | Outpatient (CLI) | payer MEDICAID, SELFPAY | END | disposition home or self-care (01) | LOC: LAB.FUTURE 16:56 | PROVIDERS: PCP Nurse Practitioner Family; Visit Provider Anesthesiology Pain Medicine | DX: F11.20 Opioid dependence, uncomplicated (principal) ==

== ENCOUNTER → 2021-09-16 | Outpatient (CLI) | payer MEDICAID, SELFPAY ==
[2021-09-16 13:56] LABS: Amphetamine Urine VISTA NEGATIVE (<1000 ng/mL); Barbiturate Urine VISTA NEGATIVE (< 200 ng/mL); Benzodiazepine Urine VISTA NEGATIVE (< 200 ng/mL); Cocaine Urine VISTA NEGATIVE (< 300 ng/mL); Ecstacy Urine VISTA NEGATIVE (< 500 ng/mL); Methadone Urine VISTA NEGATIVE (< 300 ng/mL); PCP Urine VISTA NEGATIVE (< 25 ng/mL); THC Urine VISTA NEGATIVE (< 50 ng/mL); Vista UDS pH Range 6
== END | disposition home or self-care (01) ==
LOC: LAB 12:45
PROVIDERS: PCP Nurse Practitioner Family; Visit Provider Anesthesiology Pain Medicine
DX: F11.20 Opioid dependence, uncomplicated (principal)
CPT/HCPCS: 80307

== ENCOUNTER → 2021-09-17 | Outpatient (CLI) | payer MEDICAID, SELFPAY | END | disposition home or self-care (01) | PROVIDERS: PCP Nurse Practitioner Family; Referring Provider Anesthesiology Pain Medicine; Visit Provider Anesthesiology Pain Medicine | DX: F11.20 Opioid dependence, uncomplicated (principal) ==

== ENCOUNTER 2021-11-30 21:26 | Emergency (ER) | payer MEDICAID, SELFPAY ==
[2021-11-30 21:27] VITALS: BP 156/90; PULSE 90; RESP 18; TEMP 36.6; O2SAT 98; BMI 29.9
--- NOTE | 2021-11-30 21:43 | RAD_ITS ---
INDICATION: injury/pain EXAMINATION/TECHNIQUE: X-RAY - LEFT XR Foot Min 3 Views COMPARISON: None. FINDINGS: SOFT TISSUES: No significant soft tissue swelling. No radiopaque foreign body detected. BONES/JOINTS: No acute fracture or subluxation. Second toe hammer deformity. Otherwise, adequate alignment of osseous structures. Preservation of the joint space(s). No suspicious osseous lesion observed. RAD/Foot min 3 Views IMPRESSION: Second toe hammertoe deformity, correlate clinically for focal point tenderness. Electronically Signed: Ashwin Freeman MD at 22:25 EDT ,
--- NOTE | 2021-11-30 22:00 | RAD_ITS ---
INDICATION: Injury, patient injured ankle and foot couple weeks ago. EXAMINATION/TECHNIQUE: X-RAY - LEFT XR Ankle Min 3 Views COMPARISON: None. FINDINGS: SOFT TISSUES: No significant soft tissue swelling. No radiopaque foreign body detected. BONES/JOINTS: No acute fracture or subluxation. Normal alignment. Preservation of the joint space(s). No suspicious osseous lesion observed. RAD/Ankle min 3 Views IMPRESSION: Negative left ankle. Electronically Signed: Ashwin Freeman MD at 22:24 EDT ,
--- NOTE | 2021-11-30 23:00 | ED.VIS.LOWEX ---
HPI History of Present Illness Chief Complaint: Lower Extremity Injury Informant: patient Occured/Mechanism Comment: Twisted L ankle while walking 1 week ago Onset/Context/Timing Onset: Weeks (1) Context: Sudden Onset (Gradually worse today after being on her feet for long period of time) Timing: Continuous Quality of Pain: Aching Location: left lat ankle and foot Current Severity: Moderate Maximum Severity: Severe Worsened by: Standing and walking Relieved by: Resting and remaining still Associated Symptoms Associated Symptoms: Negative for Parasthesia, Weakness or Loss of Funtion Narrative Narrative: Patient states a week ago she twisted her left ankle and has had pain ever since, it was getting a lot better as she was resting, but today she was on her feet for a long period of time and felt the pain gradually worsening all day. She states this is the first time since this injury that she is come to the emergency department, she did not have it evaluated acutely when she injured it. It did not give out or get reinjured today that she knows of. She states she sees Dr. Larsen for pain management and has taken her allotment of Percocet for this pain today which is why she states she came here. [facility] Medical History Arthritis CVA (cerebral vascular accident) HTN (hypertension) Hx of TIA (transient ischemic attack) and stroke Multiple sclerosis Home Medications aspirin 81 mg chewable tablet 81 mg PO DAILY@0800 09/12/14 [History Last Taken 04/17/19] metoprolol tartrate 25 mg tablet 25 mg PO DAILY 09/12/14 [History Last Taken 04/17/19] albuterol sulfate 90 mcg/actuation aerosol inhaler 1 - 2 puff inhalation Q4H PRN PRN Wheezing 05/18/17 [History Last Taken 04/17/19] atorvastatin 40 mg tablet 40 mg PO DAILY 05/18/17 [History Last Taken 04/17/19] clopidogrel 75 mg tablet 75 mg PO DAILY 05/18/17 [History Last Taken 04/17/19] gabapentin 300 mg capsule 300 mg PO TID 06/03/18 [History Last Taken 04/17/19] buspirone 15 mg tablet 7.5 mg PO DAILY 09/03/18 [History Last Taken 04/17/19] lisinopril 20 mg tablet 20 mg PO DAILY 09/03/18 [History Last Taken 04/17/19] oxycodone myristate 9 mg capsule sprinkle extended release 12 hr(DON'T CRUSH) 18 mg PO BID 09/03/18 [History Last Taken 04/17/19] amitriptyline 25 mg tablet 25 mg PO QHS PRN Sleep 05/14/19 [History Last Taken Unknown] tizanidine 6 mg capsule 6 mg PO DAILY Back pain 05/14/19 [History Last Taken Unknown] cyclobenzaprine 10 mg tablet 10 mg PO BID PRN muscle spasm #10 tabs 08/14/21 [Rx Last Taken Unknown] cephalexin 500 mg capsule 500 mg PO Q6 #40 caps 09/06/21 [Rx Last Taken Unknown] naproxen 500 mg tablet (Naprosyn) 500 mg PO BID PRN pain #20 tabs 09/06/21 [Rx Last Taken Unknown] Allergy/AdvReac Type Severity Reaction Status Date / Time bee venom protein (honey bee) Allergy Anaphylaxis Verified 11/30/21 21:29 mushroom Allergy Angioedema Verified 11/30/21 21:29 Sulfa (Sulfonamide Allergy Hives Verified 11/30/21 21:29 Antibiotics) Social History Smoking Status: Current every day smoker tobacco type: cigarettes ROS ROS ED Constitutional Constitutional ED: Denies chills or fever(s) Musculoskeletal Musculoskeletal: Reports extremity pain; Denies neck pain Integumentary Denies Abrasions, rash or wounds Neurologic Neurologic: Denies paresthesias or weakness EXAM Physical Exam Const Vital Signs: 11/30/21 21:27 Temperature 97.9 F Temperature Source Temporal Pulse Rate 90 Respiratory Rate 18 Blood Pressure 156/90 H Blood Pressure Mean 112 Pulse Ox 98 Oxygen Delivery Method Room Air Positive well nourished and well developed General Appearance ED: well developed and NAD Neck full ROM and supple Back/Spine normal ROM and normal to inspection Extremity Extremity Narrative: Left ankle: Tenderness in the soft tissues just distal to the lateral malleolus without any bony tenderness in the lateral or medial malleoli. Limited range of motion due to pain. Tender in the base of the fifth metatarsal of the foot, no other bony tenderness of the foot. No deformities. No signs of infection or foreign body, or erythema. No tenderness at the fibular head or elsewhere in the left lower extremity. Neuro oriented x3, no focal motor deficits and no sensory deficits noted Sensorium / Orientation: alert Psych mental status grossly normal and thought process normal Skin no wounds Rashes: no rashes MDM MDM MDM Narrative Medical decision making narrative: 3 views each of the left ankle and left foot on my interpretation negative for any acute. Radiology in agreement, they did note the second toe hammertoe, she is not having any acute symptoms here. Patient was reassured given a dose of ibuprofen, she was okay with NSAID and an Aircast which she was also given and instructions for use. Radiography Diagnostic Testing: Clinical Impression(s) from Imaging Studies Foot X-Ray 11/30/21 21:43 IMPRESSION: Second toe hammertoe deformity, correlate clinically for focal point tenderness. Electronically Signed: Ashwin Freeman MD at 22:25 EDT , Ankle X-Ray 11/30/21 22:00 IMPRESSION: Negative left ankle. Electronically Signed: Ashwin Freeman MD at 22:24 EDT , Discharge Plan Triage Chief Complaint: Lower Extremity Injury ED Provider: Trip Pressley Dx/Rx/DC Orders Clinical Impression: Left ankle sprain Instructions: ED Ankle Sprain (Adult) Prescriptions: No Action aspirin 81 MG tablet,chewable 81 mg PO DAILY@0800 metoprolol tartrate 25 MG tablet 25 mg PO DAILY atorvastatin 40 MG tablet 40 mg PO DAILY Label Comments: TAKE ONE TABLET BY MOUTH ONCE DAILY AT BEDTIME clopidogrel 75 MG tablet 75 mg PO DAILY Label Comments: TAKE ONE TABLET BY MOUTH EVERY DAY albuterol sulfate 1 INHALER inhaler 1 - 2 puff inhalation Q4H PRN PRN (Reason: Wheezing) gabapentin 300 MG capsule 300 mg PO TID buspirone 15 MG tablet 7.5 mg PO DAILY lisinopril 20 MG tablet 20 mg PO DAILY oxycodone myristate 9 MG cap,sprinkl,ER12hr(DONT CRUSH) 18 mg PO BID amitriptyline 25 MG tablet 25 mg PO QHS PRN (Reason: Sleep) tizanidine 6 MG capsule 6 mg PO DAILY cyclobenzaprine 10 mg tablet 10 mg PO BID PRN (Reason: muscle spasm) Qty: 10 0RF cephalexin 500 mg capsule 500 mg PO Q6 Qty: 40 0RF naproxen [Naprosyn] 500 mg tablet 500 mg PO BID PRN (Reason: pain) Qty: 20 0RF Primary Care Provider: Jing Reid NP Referrals: Jing Reid NP, MERCHANDISE HANDLER-C [Primary Care Provider] - 10-14 Days if not better Activity Restrictions/Additional Instructions: Wear the Aircast for the next week or so, as needed after that. Disposition Disposition: Home, Self Care
[2021-11-30 23:18] VITALS: PULSE 88; RESP 16; O2SAT 97
== END 2021-11-30 23:18 | disposition home or self-care (01) ==
PROVIDERS: Emergency Provider Emergency Medicine; PCP Nurse Practitioner Family; Visit Provider Emergency Medicine
DX: S93.402A Sprain of unspecified ligament of left ankle, initial encounter (principal); F17.210 Nicotine dependence, cigarettes, uncomplicated; M20.40 Other hammer toe(s) (acquired), unspecified foot; I10 Essential (primary) hypertension; M19.90 Unspecified osteoarthritis, unspecified site; Z79.82 Long term (current) use of aspirin; Z79.899 Other long term (current) drug therapy; X50.1XXA Overexertion from prolonged static or awkward postures, initial encounter; Y93.01 Activity, walking, marching and hiking
CPT/HCPCS: 73610; 73630; 99283

== ENCOUNTER → 2022-04-22 | Outpatient (CLI) | payer MEDICAID, SELFPAY ==
[2022-04-22 19:06] LABS: Amphetamine Urine VISTA NEGATIVE (<1000 ng/mL); Barbiturate Urine VISTA NEGATIVE (< 200 ng/mL); Benzodiazepine Urine VISTA NEGATIVE (< 200 ng/mL); Cocaine Urine VISTA NEGATIVE (< 300 ng/mL); Ecstacy Urine VISTA NEGATIVE (< 500 ng/mL); Methadone Urine VISTA NEGATIVE (< 300 ng/mL); PCP Urine VISTA NEGATIVE (< 25 ng/mL); THC Urine VISTA NEGATIVE (< 50 ng/mL); Vista UDS pH Range 5
== END | disposition home or self-care (01) ==
LOC: LAB 14:34
PROVIDERS: PCP Nurse Practitioner Family; Visit Provider Anesthesiology Pain Medicine
DX: F11.20 Opioid dependence, uncomplicated (principal)
CPT/HCPCS: 80307